=== PATIENT | male | born 1935 | race Caucasian/White ===

== ENCOUNTER → 2016-05-03 | Outpatient (CLI) | payer OTHER ==
[~2016-05-03] MED LIST: AMLO2.5T PO; CALC-20 PO; CHOL100010 PO; CHOL100041 PO; FLM4 PO; METO-551 PO; MULT-506 PO; NYSTCRE11 TD; RAMI5CAP OR; SIMV20TA2 PO; TAMS0.4C38 PO; WARF1TAB PO; WARF3TAB PO
== END | disposition home or self-care (01) ==
LOC: C.LAB 09:59
PROVIDERS: ATTEND Urology
DX: C61 Malignant neoplasm of prostate (principal)

== ENCOUNTER → 2016-10-06 | Outpatient (CLI) | payer OTHER ==
[2016-10-06 12:24] LABS: BASO % 0.4 %; BASO ABS # 0.02 K/uL (0-0.2); COMPLETE YES; EOS % 1.4 %; HEMATOCRIT 40.8 % (42-52); IG% 0.2 %; LYMPH % 24.6 %; LYMPH ABS # 1.23 K/uL (1.2-3.4); MEAN CORPUSCULAR HEMOGLOBIN 32.3 pg (25-34); MEAN CORPUSCULAR HGB CONC 34.3 g/dl (32-36); MEAN PLATELET VOLUME 10.9 fL (7.4-10.4); MONO % 11.4 %; PLATELET COUNT 125 K/uL (130-400); RED BLOOD COUNT 4.34 M/uL (4.7-6.1)
[2016-10-06 13:21] LABS: BLOOD UREA NITROGEN 24 mg/dl (7-18); BUN/CREATININE RATIO 23.8 (10-20); CALCIUM 8.8 mg/dl (8.5-10.1); CARBON DIOXIDE 28 mmol/L (21-32); CHLORIDE 106 mmol/L (98-107); GLUCOSE 92 mg/dl (70-99); POTASSIUM 4.2 mmol/L (3.5-5.1); SODIUM 142 mmol/L (136-145)
--- NOTE | 2016-10-13 08:23 | CODING QUERY MEDICAL NECESSITY ---
CQSUPPORTING DIAGNOSIS NEEDED A supporting diagnosis is required for the test/procedure performed on this patient in order for us to be reimbursed by the patient's insurance. Please provide a supporting diagnosis for the following test/procedure listed below next to the test name along with your signature. *If there is no additional diagnosis for this patient that would support the following test/procedure please document that below next to the test/procedure. Test(s)/Procedure(s) that require a supporting diagnosis: DOS 10/06/16 VITAMIN D TEST Provider Signature: Date: Thank you Crystal Brown Health Information Management Once completed, please kindly fax back to [phone] For questions please call [phone]
== END ==
LOC: C.LABPBG 08:52
PROVIDERS: ATTEND Internal Medicine Geriatric Medicine
DX: I10 Essential (primary) hypertension (principal); Z79.01 Long term (current) use of anticoagulants; D64.9 Anemia, unspecified; D61.818 Other pancytopenia; M85.80 Other specified disorders of bone density and structure, unspecified site

== ENCOUNTER → 2016-11-24 | Outpatient (CLI) | payer OTHER | END | disposition home or self-care (01) | LOC: C.LABPBG 07:59 | PROVIDERS: ATTEND Urology | DX: C61 Malignant neoplasm of prostate (principal) ==

== ENCOUNTER 2017-01-02 09:14 | Emergency (ER) | payer OTHER ==
[~2017-01-02] VITALS: Ht 175.3 cm; Wt 77.5 kg
[~2017-01-02 09:14] MED LIST changes: -AMLO2.5T PO; -CHOL100041 PO; -TAMS0.4C38 PO
[2017-01-02 09:16] VITALS: TEMP 36.4; Ht 175.3 cm; Wt 77.5 kg
[2017-01-02] MEDS ORDERED: CHOL100041 PO (09:41)
[2017-01-02] MEDS ORDERED: LISINOPRIL 5 MG TAB PO ONE (09:45)
--- NOTE | 2017-01-02 09:54 | EMERGENCY ROOM VISIT NOTE ---
"History Report prepared by Flo: Heather Reyes Under the Supervision of: Dr. Clinton Mendez M.D. First contact with patient: 09:23 Chief Complaint: HYPERTENSION Stated Complaint: HIGH BP, HEART History of Present Illness The patient is an 81 year old male who presents to the Emergency Room with complaints of persistent hypertension that began this morning. The patient states that he has a history of atrial fibrillation, noting that he is on Coumadin. The patient states that he last had his INR checked last week, noting that it is normal. He additionally notes a history of Prostate cancer, reporting being on Flomax for the past 10 years. The patient states that this past week he had an eye appointment, noting that he was found to have cataracts. He states that he was instructed to stop taking Flomax. The patient states that since then he has noticed his heart rate increase, and over the last few days he has noticed an irregular heart rhythm. He states that this morning he woke up and found his blood pressure to be 150/102 mmHg, but states that he typically runs around 110/65 mmHg. The patient states that this morning he took his Metoprolol. He denies any back pain, chest pain, abdominal pain, or shortness of breath. The patient states that his urine output has decreased since stopping the Flomax. He additionally reports a history of a pacemaker. The patient states that he was previously on Ramipril, but states that he was taken off the medication because he blood pressure dropped too low. Source of History: patient Onset: this morning Position: other (global) Symptom Intensity: 150/102 Quality: other (hypertension) Timing: other (persistent) Associated Symptoms: No chest pain, No SOB, No abdominal pain, No back pain Note: Associated Symptoms: tachycardia, irregular heart rhythm Review of Systems See HPI for pertinent positives & negatives. A total of 10 systems reviewed and were otherwise negative. 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 Family History FHx: cancer FHx: heart disease Hypertension Kidney disease Kidney stones Social History Smoking Status: Never Smoker Alcohol Use: none Marital Status: Housing Status: lives with significant other Occupation Status: retired Current/Historical Medications Scheduled Calcium Carbonate-Vitamin D (Calcium 600 + D), 1 TAB PO QAM Cholecalciferol (D 1000), 1,000 UNITS PO DAILY Metoprolol Tartrate (Lopressor), 50 MG PO BID Multivitamin (Multivitamin), 1 TAB PO QAM Simvastatin (Zocor), 20 MG PO QPM Warfarin Sodium (Coumadin), 3 MG PO DAILY Warfarin Sodium (Coumadin), 0.5 TAB PO DAILY Scheduled PRN Nystatin/Triamcinolone (Mycogen || ), 1 APPL TD BID PRN Allergies Coded Allergies: NO KNOWN DRUG ALLERGIES (Verified Allergy, Unknown, ., 01/02/17) Physical Exam Vital Signs Date Time Temp Pulse Resp B/P (MAP) Pulse Ox O2 Delivery O2 Flow Rate FiO2 01/02/17 10:54 66 16 152/88 94 01/02/17 09:16 36.4 74 20 153/99 99 Room Air Physical Exam GENERAL: Patient is well appearing and in no acute distress. HEENT: No acute trauma, normocephalic atraumatic, mucous membranes moist, no nasal congestion, no scleral icterus. NECK: No stridor, no adenopathy, no meningismus, trachea is midline. LUNGS: No dyspnea. Clear to auscultation and equal bilaterally. No wheeze, no rhonchi. HEART: Regular rate and rhythm. No murmurs, rubs, gallops appreciated. ABDOMEN: Soft, nontender, bowel sounds positive, no masses appreciated, no peritonitis. BACK: No midline tenderness, no CVA tenderness EXTREMITIES: Normal motion all extremities, no cyanosis, no edema. NEUROLOGIC: Alert and oriented, no acute motor or sensory deficits, no focal weakness, cranial nerves grossly intact. SKIN: No rash, no jaundice, no diaphoresis. Medical Decision & Procedures Laboratory Results 01/02/17 09:50 Red Blood Count 4.42, Mean Corpuscular Volume 94.6, Mean Corpuscular Hemoglobin 31.9, Mean Corpuscular Hemoglobin Concent 33.7, Mean Platelet Volume 10.3, Neutrophils (%) (Auto) 70.2, Lymphocytes (%) (Auto) 17.5, Monocytes (%) (Auto) 10.2, Eosinophils (%) (Auto) 1.3, Basophils (%) (Auto) 0.4, Neutrophils # (Auto ) 3.87, Lymphocytes # (Auto) 0.96, Monocytes # (Auto) 0.56, Eosinophils # (Auto ) 0.07, Basophils # (Auto) 0.02 01/02/17 09:50 Test 01/02/17 09:50 White Blood Count 5.50 K/uL (4.8-10.8) Red Blood Count 4.42 M/uL (4.7-6.1) Hemoglobin 14.1 g/dL (14.0-18.0) Hematocrit 41.8 % (42-52) Mean Corpuscular Volume 94.6 fL (80-100) Mean Corpuscular Hemoglobin 31.9 pg (25-34) Mean Corpuscular Hemoglobin Concent 33.7 g/dl (32-36) Platelet Count 128 K/uL (130-400) Mean Platelet Volume 10.3 fL (7.4-10.4) Neutrophils (%) (Auto) 70.2 % Lymphocytes (%) (Auto) 17.5 % Monocytes (%) (Auto) 10.2 % Eosinophils (%) (Auto) 1.3 % Basophils (%) (Auto) 0.4 % Neutrophils # (Auto) 3.87 K/uL (1.4-6.5) Lymphocytes # (Auto) 0.96 K/uL (1.2-3.4) Monocytes # (Auto) 0.56 K/uL (0.11-0.59) Eosinophils # (Auto) 0.07 K/uL (0-0.5) Basophils # (Auto) 0.02 K/uL (0-0.2) RDW Standard Deviation 43.5 fL (36.4-46.3) RDW Coefficient of Variation 12.6 % (11.5-14.5) Immature Granulocyte % (Auto) 0.4 % Immature Granulocyte # (Auto) 0.02 K/uL (0.00-0.02) Prothrombin Time 24.5 SECONDS (9.0-12.0) Prothromb Time International Ratio 2.2 (0.9-1.1) Activated Partial Thromboplast Time 42.6 SECONDS (21.0-31.0) Partial Thromboplastin Ratio 1.6 Anion Gap 4.0 mmol/L (3-11) Est Creatinine Clear Calc Drug Dose 66.6 ml/min Estimated GFR () 93.8 Estimated GFR (Non- 80.9 BUN/Creatinine Ratio 17.8 (10-20) Calcium Level 9.2 mg/dl (8.5-10.1) Magnesium Level 2.3 mg/dl (1.8-2.4) Troponin I < 0.015 ng/ml (0-0.045) Laboratory results as reviewed by me. Medications Administered Medications (Trade) Dose Ordered Sig/Hailey Route Start Time Stop Time Status Last Admin Dose Admin Lisinopril (Zestril Tab) 5 mg NOW ONCE PO 01/02/17 09:45 01/02/17 09:46 DC 01/02/17 10:10 5 MG ECG Indication: other (hypertension) Rate (beats per minute): 66 Rhythm: other (atrial paced) Findings: 1st degree AV block, PAC, other (bifasicular block) ED Course 923: The patient was evaluated in room B12B. A complete history and physical exam was performed. 0945: Ordered Zestril Tab 5 mg PO. 1048: I reevaluated the patient and he is doing well. I discussed the exam findings with him and I discussed the treatment plan. He verbalized complete understanding and agreement. He is ready to go home. Medical Decision Differential: Benign Hypertension, Hypertensive Urgency/Emergency, Cardiovascular Pathology, Endocrine, Metabolic/Electrolyte, Renal Disease, End- organ Damage, amongst other pathologies entertained. 81 yr old male sent to ED after discussion with outpatient physician over phone for evaluation of HTN and palpitations this morning. Recently stopped both ramipril and Flomax which are likely causes of his increased HTN. Palpitations unclear though no current afib but does have periodic PAC along with his paced rhythm. Plts stable consistent with his chronic thrombocytopenia. INR therapeutic. He has no symptoms and feels fine. No evidence of ACS. Will have him restart ramipril daily. Reviewed symptoms requiring RTED. Will follow up with PCP as well as will be seen by PAT for cornea surgery. Medication Reconcilliation Current Medication List: was personally reviewed by me Blood Pressure Screening Patient's blood pressure: Elevated blood pressure Blood pressure disposition: Referred to PCP Impression Primary Impression: HYPERTENSION NOS Additional Impressions: Intermittent palpitations Thrombocytopenia Scribe Attestation The scribe's documentation has been prepared under my direction and personally reviewed by me in its entirety. I confirm that the note above accurately reflects all work, treatment, procedures, and medical decision making performed by me. Departure Information Dispostion Home / Self-Care Referrals No Doctor, Assigned (PCP) Forms HOME CARE DOCUMENTATION FORM, IMPORTANT VISIT INFORMATION, WORK / SCHOOL INSTRUCTIONS Patient Instructions My [facility] Additional Instructions Your blood pressure was elevated during this visit. This is quite common in many people who are being evaluated in the Emergency Department for many reasons. However, it is important that you have your Primary Care Provider recheck your blood pressure and discuss whether treatment will be needed. [facility] elevated blood pressure can lead to strokes, heart attacks, kidney failure amongst other medical issues. If you develop severe headaches, chest pain, weakness in arms or legs, or other concerning symptoms call 911. You may restart your Ramipril daily tomorrow. Problem Qualifiers"
[2017-01-02 10:06] LABS: BASO % 0.4 %; BASO ABS # 0.02 K/uL (0-0.2); COMPLETE YES; EOS % 1.3 %; HEMATOCRIT 41.8 % (42-52); IG% 0.4 %; LYMPH % 17.5 %; LYMPH ABS # 0.96 K/uL (1.2-3.4); MEAN CELL VOLUME 94.6 fL (80-100); MEAN CORPUSCULAR HEMOGLOBIN 31.9 pg (25-34); MEAN CORPUSCULAR HGB CONC 33.7 g/dl (32-36); MEAN PLATELET VOLUME 10.3 fL (7.4-10.4); MONO % 10.2 %; NEUT % 70.2 %; PLATELET COUNT 128 K/uL (130-400); RED BLOOD COUNT 4.42 M/uL (4.7-6.1)
[2017-01-02 10:26] LABS: BLOOD UREA NITROGEN 15 mg/dl (7-18); BUN/CREATININE RATIO 17.8 (10-20); CALCIUM 9.2 mg/dl (8.5-10.1); CARBON DIOXIDE 30 mmol/L (21-32); CHLORIDE 108 mmol/L (98-107); CREATININE 0.87 mg/dl (0.60-1.40); GLUCOSE 102 mg/dl (70-99); MAGNESIUM 2.3 mg/dl (1.8-2.4); POTASSIUM 4.1 mmol/L (3.5-5.1); SODIUM 142 mmol/L (136-145)
[2017-01-02 10:34] LABS: INR 2.2 (0.9-1.1); PARTIAL THROMBOPLASTIN RATIO 1.6; PROTHROMBIN TIME (PATIENT) 24.5 SECONDS (9.0-12.0)
[2017-01-02 10:54] VITALS: BP 152/88; PULSE 66; O2SAT 94
[2017-01-10] MEDS ORDERED: AMLO2.5T PO (14:29)
[2017-01-10] MEDS ORDERED: TAMS0.4C38 PO (14:29)
== END 2017-01-02 10:56 | disposition home or self-care (01) ==
LOC: C.EDB 09:16
DX: I10 Essential (primary) hypertension (principal); R00.2 Palpitations; D69.6 Thrombocytopenia, unspecified; I48.91 Unspecified atrial fibrillation; Z85.46 Personal history of malignant neoplasm of prostate; Z98.61 Coronary angioplasty status; Z98.890 Other specified postprocedural states; Z82.49 Family history of ischemic heart disease and other diseases of the circulatory system; Z84.1 Family history of disorders of kidney and ureter; Z79.01 Long term (current) use of anticoagulants; Z79.899 Other long term (current) drug therapy

== ENCOUNTER → 2017-01-30 | Outpatient (CLI) | payer OTHER ==
[~2017-01-30] MED LIST changes: +AMLO2.5T PO; -CHOL100010 PO; -FLM4 PO; -RAMI5CAP OR; +TAMS0.4C38 PO
[2017-01-30 12:18] LABS: BLOOD UREA NITROGEN 14 mg/dl (7-18); BUN/CREATININE RATIO 15.3 (10-20); CALCIUM 8.9 mg/dl (8.5-10.1); CARBON DIOXIDE 30 mmol/L (21-32); CHLORIDE 108 mmol/L (98-107); CREATININE 0.94 mg/dl (0.60-1.40); GLUCOSE 89 mg/dl (70-99); SODIUM 143 mmol/L (136-145)
== END | disposition home or self-care (01) ==
LOC: C.LABPBG 10:40
PROVIDERS: ATTEND Physician Assistant
DX: Z01.818 Encounter for other preprocedural examination (principal)

== ENCOUNTER → 2017-02-07 | Day surgery (SDC) | payer OTHER ==
[2017-01-10 14:31] VITALS: Ht 167.6 cm; Wt 72.7 kg
[~2017-02-07] VITALS: Ht 167.6 cm; Wt 72.7 kg
[~2017-02-07] MED LIST changes: +500ML BSS 0.3ML EPI 1:1000PF IRRIG ONE; +ACETAMINOPHEN 325 MG TAB PO PRN; +AMVISC PLUS 0.8ML SYRINGE INT OCU ONE; +ATROPINE SULFATE 0.1 MG/ML 5ML SYR IV PRN; +BSS FLUSH ONE; +EpHEDrine SULFATE INJ 50 MG/ML AMP IV PRN; +EpINEphrine INJ 1MG/ML AMP 1 MG/ML AMP ONE; +LACTATED RINGER'S 1000ML 500 ML IV SCH; +LIDOCAINE 3.5% OPH GEL PER APPLICATION CHARGE ONE; +LIDOCAINE HCL 1% MPF 2 ML VIAL ONE; +MIDAZOLAM HCL 1 MG/ML 2ML VIAL ONE; +MIX: 4ML BSS 1ML EPI 1:1000 PF INSTIL ONE; +OCUCOAT 1 ML SOLN IO ONE; +ONDANSETRON INJ 2 MG/ML 2 ML VIAL IV PRN; +PHENYLEPHRINE HCL 10% OP SOLN PER DROP CHARGE OPR SCH; +POVIDONE-IODINE OP SOLN 30 ML BTL ONE; +PROPARACAINE 0.5% OP SOLN PER DROP CHARGE OPR SCH; +TOBRAMYCIN/DEXAMETHASONE OPH OINT PER APPLN CHARGE ONE
[2017-02-07] MEDS: PHENYLEPHRINE HCL 2.5% OP SOLN PER DROP CHARGE OPR SCH ×2 (11:08→11:17)
[2017-02-07] MEDS: TROPICAMIDE 1% OP SOLN PER DROP CHARGE OPR SCH ×2 (11:09→11:18)
[2017-02-07] MEDS: CYCLOPENTOLATE HCL 1% OP SOLN PER DROP CHARGE OPR SCH ×2 (11:10→11:19)
[2017-02-07] MEDS: KETOROLAC 0.5% OP SOLN PER DROP CHARGE OPR SCH ×2 (11:11→11:20)
[2017-02-07] MEDS: GATIFLOXACIN OP SOLN PER DROP CHARGE OPR SCH ×2 (11:12→11:22)
--- NOTE | 2017-02-07 11:38 | History & Physical Bridge - SC ---
H&P Re-Evaluation Bridge Note: I have examined the patient, reviewed the History & Physical and in the interval since the performance of the History & Physical I have noted the following changes of clinical significance: Diagnosis: Right Cataract Procedure: Right Cataract Removal with Lens Implant No changes noted
--- NOTE | 2017-02-07 12:10 | Discharge Instructions-SurgCtr ---
Discharge Instructions Date of Service Feb 07, 2017. Visit Reason for Visit: Cataract Right Eye Discharge Discharge Diagnosis / Problem: cataract Discharge Goals Goal(s): Improve function Medications Stopped Medications Name(s): regan, last dose over 1 month ago Activity Recommendations Activity Limitations: per Instructions/Follow-up section Anesthesia . Post Anesthesia Instructions: If you have had General Anesthesia or IV Sedation: * Do not drive today. * Resume driving when surgeon permits. * Do not make important decisions or sign legal documents today. * Call surgeon for: 1. Temperature elevations greater than 101 degrees F. 2. Uncontrollable pain. 3. Excessive bleeding. 4. Persistent nausea and vomiting. 5. Medication intolerance (nausea, vomiting or rash). * For nausea and vomiting use only clear liquids such as: tea, soda, bouillon until nausea subsides, then gradually increase diet as tolerated. * If you have any concerns or questions, call your surgeon's office. If physician is unavailable and it is an emergency, call 911 or go to the nearest emergency room. . Diet Recommendations Home Diet: resume previous diet Procedures Procedures Performed: Right Cataract Phacoemulsification With Intraocular Lens Implant Pending Studies Studies pending at discharge: no Medical Emergencies . Who to Call and When: Medical Emergencies: If at any time you feel your situation is an emergency, please call 911 immediately. . Non-Emergent Contact Non-Emergency issues call your: Bridge Operator . . "Provider Documentation" section prepared by Broderick Terry. .
--- NOTE | 2017-02-07 12:11 | [facility] Operative Report ---
Operative Report Date of Service Feb 07, 2017. Operative Report 1. PREOPERATIVE DIAGNOSIS: Cataract of the right eye. 2. POSTOPERATIVE DIAGNOSIS: Same. 3. PROCEDURE: Phacoemulsification with intraocular lens implantation of the right eye. SURGEON: Dr. Broderick Terry. ANESTHESIA: Topical Lidocaine gel, 1% Non- Preserved intracameral Lidocaine, and monitored intravenous sedation. INDICATIONS FOR THE PROCEDURE: The patient is a 82 - year-old male with a history of cataract of the right eye causing significant visual impairment. The details of the proposed procedure were explained to the patient who asked appropriate questions and following discussion of all risks, benefits and alternatives agreed to have the procedure done. The patient had a know history of taking of flomax. 4. OPERATION AND FINDINGS: DESCRIPTION OF PROCEDURE: After informed consent was obtained, the patient was brought to the Operating Room at the [facility]. The patient was placed in a supine position and then the right eye was prepped and draped in the usual sterile fashion for intraocular surgery. A drop of topical Lidocaine gel was placed in the operative eye. A wire lid speculum was then placed in the fornices. A corneal paracentesis was then created temporally. The Non-Preserved Lidocaine was then instilled into the anterior chamber. Epinephrine with a 1:4 dilution was instilled into the anterior chamber. The anterior chamber was then pressurized with viscoelastic. A 2.0 mm clear corneal incision was then created temporally. A cystotome was inserted into the anterior chamber and used to create a tear in the anterior lens capsule. This capsular tear was then used to create a small flap and the flap was dragged in a counterclockwise direction in order to create a continuous curvilinear capsulorrhexis. Hydrodissection was accomplished with balanced salt solution. Phacoemulsification of the lens nucleus was then performed in a standard [id number] technique. The phaco time was 30 seconds with an average power of 9 %. The remaining cortical material was removed using irrigation aspiration. The capsular bag was then filled with viscoelastic. A [employer]ch [employer] Lomb MI60L +20.0 diopters lens was then loaded into the injector and injected into the capsular bag. The remaining viscoelastic was removed with the irrigation aspiration handpiece. The wound was hydrated and then checked and found to be watertight. The intraocular pressure was checked and found to be adequate. The wire lid speculum was removed and the patient's face was cleaned and dried. TobraDex ointment was placed in the inferior fornix. The patient was discharged to the Recovery Room having tolerated the procedure well. There were no complications. The patient will be seen tomorrow in the office for follow-up. I attest to the content of the Intraoperative Record and any orders documented therein. Any exceptions are noted below.
[2017-02-07 12:12] VITALS: TEMP 36.5
--- NOTE | 2017-02-07 12:30 | Anesthesia Progress Nt - [facility] ---
Anesthesia Post Op Note Date & Time Feb 07, 2017 at 12:30 Vital Signs Pain Intensity: 0 Vital Signs Past 12 Hours Date Time Temp Pulse Resp B/P (MAP) Pulse Ox O2 Delivery O2 Flow Rate FiO2 02/07/17 12:12 36.5 61 16 122/78 (93) 95 Room Air 02/07/17 10:59 36.4 67 16 135/72 (93) 95 Notes Mental Status: alert / awake / arousable, participated in evaluation Pt Amnestic to Procedure: Yes Nausea / Vomiting: adequately controlled Pain: adequately controlled Airway Patency, RR, SpO2: stable & adequate BP & HR: stable & adequate Hydration State: stable & adequate Anesthetic Complications: no major complications apparent
[2017-02-07 12:35] VITALS: BP 141/78; PULSE 59; O2SAT 98
== END | disposition home or self-care (01) ==
LOC: X.SURG 10:34
PROVIDERS: ATTEND Ophthalmology
DX: H26.9 Unspecified cataract (principal); I25.10 Atherosclerotic heart disease of native coronary artery without angina pectoris; I48.0 Paroxysmal atrial fibrillation; I10 Essential (primary) hypertension; I25.2 Old myocardial infarction; Z85.46 Personal history of malignant neoplasm of prostate; Z68.26 Body mass index [BMI] 26.0-26.9, adult; Z79.01 Long term (current) use of anticoagulants

== ENCOUNTER → 2017-02-21 | Day surgery (SDC) | payer OTHER ==
[2017-02-09 10:18] VITALS: Ht 167.6 cm; Wt 72.7 kg
[~2017-02-21] VITALS: Ht 167.6 cm; Wt 72.7 kg
[~2017-02-21] MED LIST changes: -ONDANSETRON INJ 2 MG/ML 2 ML VIAL IV PRN; +PHENYLEPHRINE HCL 10% OP SOLN PER DROP CHARGE OPL SCH; -PHENYLEPHRINE HCL 10% OP SOLN PER DROP CHARGE OPR SCH; +PROPARACAINE 0.5% OP SOLN PER DROP CHARGE OPL SCH; -PROPARACAINE 0.5% OP SOLN PER DROP CHARGE OPR SCH
[2017-02-21] MEDS: PHENYLEPHRINE HCL 2.5% OP SOLN PER DROP CHARGE OPL SCH ×2 (10:12→10:18)
[2017-02-21] MEDS: TROPICAMIDE 1% OP SOLN PER DROP CHARGE OPL SCH ×2 (10:13→10:19)
[2017-02-21] MEDS: CYCLOPENTOLATE HCL 1% OP SOLN PER DROP CHARGE OPL SCH ×2 (10:14→10:20)
[2017-02-21] MEDS: KETOROLAC 0.5% OP SOLN PER DROP CHARGE OPL SCH ×2 (10:15→10:20)
[2017-02-21] MEDS: GATIFLOXACIN OP SOLN PER DROP CHARGE OPL SCH ×2 (10:16→10:27)
--- NOTE | 2017-02-21 10:44 | History & Physical Bridge - SC ---
H&P Re-Evaluation Bridge Note: I have examined the patient, reviewed the History & Physical and in the interval since the performance of the History & Physical I have noted the following changes of clinical significance: Diagnosis: Left Cataract Procedure: Left Cataract Removal with Lens Implant No changes noted
--- NOTE | 2017-02-21 11:17 | Discharge Instructions-SurgCtr ---
Discharge Instructions Date of Service Feb 21, 2017. Visit Reason for Visit: Cataract Left Eye Discharge Discharge Diagnosis / Problem: cataract Discharge Goals Goal(s): Improve function Medications Stopped Medications Name(s): Flomax-stopped 6 weeks ago. Activity Recommendations Activity Limitations: per Instructions/Follow-up section Anesthesia . Post Anesthesia Instructions: If you have had General Anesthesia or IV Sedation: * Do not drive today. * Resume driving when surgeon permits. * Do not make important decisions or sign legal documents today. * Call surgeon for: 1. Temperature elevations greater than 101 degrees F. 2. Uncontrollable pain. 3. Excessive bleeding. 4. Persistent nausea and vomiting. 5. Medication intolerance (nausea, vomiting or rash). * For nausea and vomiting use only clear liquids such as: tea, soda, bouillon until nausea subsides, then gradually increase diet as tolerated. * If you have any concerns or questions, call your surgeon's office. If physician is unavailable and it is an emergency, call 911 or go to the nearest emergency room. . Diet Recommendations Home Diet: resume previous diet Procedures Procedures Performed: Left Cataract Phacoemulsification With Intraocular Lens Implant Pending Studies Studies pending at discharge: no Medical Emergencies . Who to Call and When: Medical Emergencies: If at any time you feel your situation is an emergency, please call 911 immediately. . Non-Emergent Contact Non-Emergency issues call your: Garage Supervisor . . "Provider Documentation" section prepared by Broderick Terry. .
--- NOTE | 2017-02-21 11:18 | [facility] Operative Report ---
Operative Report Date of Service Feb 21, 2017. Operative Report 1. PREOPERATIVE DIAGNOSIS: Cataract of the left eye. 2. POSTOPERATIVE DIAGNOSIS: Same. 3. PROCEDURE: Phacoemulsification with intraocular lens implantation of the left eye. SURGEON: Dr. Broderick Terry. ANESTHESIA: Topical Lidocaine gel, 1% Non- Preserved intracameral Lidocaine, and monitored intravenous sedation. INDICATIONS FOR THE PROCEDURE: The patient is a 82 - year-old male with a history of cataract of the left eye causing significant visual impairment. The details of the proposed procedure were explained to the patient who asked appropriate questions and following discussion of all risks, benefits and alternatives agreed to have the procedure done. 4. OPERATION AND FINDINGS: DESCRIPTION OF PROCEDURE: After informed consent was obtained, the patient was brought to the Operating Room at the [facility]. The patient was placed in a supine position and then the left eye was prepped and draped in the usual sterile fashion for intraocular surgery. A drop of topical Lidocaine gel was placed in the operative eye. A wire lid speculum was then placed in the fornices. A corneal paracentesis was then created temporally. The Non-Preserved Lidocaine was then instilled into the anterior chamber. The anterior chamber was then pressurized with viscoelastic. A 2.0 mm clear corneal incision was then created temporally. A cystotome was inserted into the anterior chamber and used to create a tear in the anterior lens capsule. This capsular tear was then used to create a small flap and the flap was dragged in a counterclockwise direction in order to create a continuous curvilinear capsulorrhexis. Hydrodissection was accomplished with balanced salt solution. Phacoemulsification of the lens nucleus was then performed in a standard hqogvo-wlo-pasyvjt technique. The phaco time was 22 seconds with an average power of 9 %. The remaining cortical material was removed using irrigation aspiration. The capsular bag was then filled with viscoelastic. A [employer]ch [employer] Lomb MI60L +20.0 diopters lens was then loaded into the injector and injected into the capsular bag. The remaining viscoelastic was removed with the irrigation aspiration handpiece. The wound was hydrated and then checked and found to be watertight. The intraocular pressure was checked and found to be adequate. The wire lid speculum was removed and the patient's face was cleaned and dried. TobraDex ointment was placed in the inferior fornix. The patient was discharged to the Recovery Room having tolerated the procedure well. There were no complications. The patient will be seen tomorrow in the office for follow-up. I attest to the content of the Intraoperative Record and any orders documented therein. Any exceptions are noted below.
[2017-02-21 11:19] VITALS: TEMP 36.1
--- NOTE | 2017-02-21 11:34 | Anesthesia Progress Nt - [facility] ---
Anesthesia Post Op Note Date & Time Feb 21, 2017 at 11:34 Vital Signs Pain Intensity: 0 Vital Signs Past 12 Hours Date Time Temp Pulse Resp B/P (MAP) Pulse Ox O2 Delivery O2 Flow Rate FiO2 02/21/17 11:19 36.1 58 16 125/80 (95) 95 Room Air 02/21/17 10:05 36.2 84 20 147/99 (115) 96 Room Air Notes Mental Status: alert / awake / arousable, participated in evaluation Pt Amnestic to Procedure: Yes Nausea / Vomiting: adequately controlled Pain: adequately controlled Airway Patency, RR, SpO2: stable & adequate BP & HR: stable & adequate Hydration State: stable & adequate Anesthetic Complications: no major complications apparent
[2017-02-21 11:42] VITALS: BP 134/81; PULSE 63; O2SAT 95
== END | disposition home or self-care (01) ==
LOC: X.SURG 09:38
PROVIDERS: ATTEND Ophthalmology
DX: H25.9 Unspecified age-related cataract (principal); I48.0 Paroxysmal atrial fibrillation; I10 Essential (primary) hypertension; E78.5 Hyperlipidemia, unspecified; Z95.0 Presence of cardiac pacemaker; Z79.01 Long term (current) use of anticoagulants; Z79.899 Other long term (current) drug therapy

== ENCOUNTER → 2017-03-31 | Outpatient (CLI) | payer OTHER ==
[~2017-03-31] MED LIST changes: -500ML BSS 0.3ML EPI 1:1000PF IRRIG ONE; -ACETAMINOPHEN 325 MG TAB PO PRN; -AMVISC PLUS 0.8ML SYRINGE INT OCU ONE; -ATROPINE SULFATE 0.1 MG/ML 5ML SYR IV PRN; -BSS FLUSH ONE; -EpHEDrine SULFATE INJ 50 MG/ML AMP IV PRN; -EpINEphrine INJ 1MG/ML AMP 1 MG/ML AMP ONE; -LACTATED RINGER'S 1000ML 500 ML IV SCH; -LIDOCAINE 3.5% OPH GEL PER APPLICATION CHARGE ONE; -LIDOCAINE HCL 1% MPF 2 ML VIAL ONE; -MIDAZOLAM HCL 1 MG/ML 2ML VIAL ONE; -MIX: 4ML BSS 1ML EPI 1:1000 PF INSTIL ONE; -OCUCOAT 1 ML SOLN IO ONE; -PHENYLEPHRINE HCL 10% OP SOLN PER DROP CHARGE OPL SCH; -POVIDONE-IODINE OP SOLN 30 ML BTL ONE; -PROPARACAINE 0.5% OP SOLN PER DROP CHARGE OPL SCH; -TOBRAMYCIN/DEXAMETHASONE OPH OINT PER APPLN CHARGE ONE
== END | disposition home or self-care (01) ==
LOC: C.LABSPEC 13:12
PROVIDERS: ATTEND Physician Assistant
DX: J02.9 Acute pharyngitis, unspecified (principal)

== ENCOUNTER → 2017-04-05 | Outpatient (CLI) | payer OTHER ==
[2017-04-05 12:01] LABS: BASO % 0.2 %; BASO ABS # 0.01 K/uL (0-0.2); COMPLETE YES; EOS % 1.5 %; HEMATOCRIT 42.5 % (42-52); IG% 0.2 %; LYMPH % 22.5 %; LYMPH ABS # 1.08 K/uL (1.2-3.4); MEAN CELL VOLUME 95.7 fL (80-100); MEAN CORPUSCULAR HGB CONC 33.4 g/dl (32-36); MEAN PLATELET VOLUME 10.5 fL (7.4-10.4); NEUT % 66.6 %; PLATELET COUNT 119 K/uL (130-400); RED BLOOD COUNT 4.44 M/uL (4.7-6.1)
[2017-04-05 12:24] LABS: ALT/SGPT 57 U/L (12-78); AST/SGOT 40 U/L (15-37); BLOOD UREA NITROGEN 16 mg/dl (7-18); BUN/CREATININE RATIO 17.8 (10-20); CALCIUM 8.8 mg/dl (8.5-10.1); CARBON DIOXIDE 32 mmol/L (21-32); CHLORIDE 106 mmol/L (98-107); CREATININE 0.92 mg/dl (0.60-1.40); GLUCOSE 113 mg/dl (70-99); POTASSIUM 3.9 mmol/L (3.5-5.1); SODIUM 140 mmol/L (136-145)
[2017-04-05 12:42] LABS: ALKALINE PHOSPHATASE 82 U/L (45-117); CHOLESTEROL 121 mg/dl (0-200); CHOLESTEROL/HDL RATIO 2.1; HDL CHOLESTEROL 57 mg/dl; LDL CHOLESTEROL CALCULATED 40 mg/dl; TRIGLYCERIDES 119 mg/dl (0-150); VERY LOW DENSITY LIPOPROT CALC 24 mg/dl
== END | disposition home or self-care (01) ==
LOC: C.LABPBG 09:56
PROVIDERS: ATTEND Internal Medicine Geriatric Medicine
DX: I25.10 Atherosclerotic heart disease of native coronary artery without angina pectoris (principal); I48.0 Paroxysmal atrial fibrillation; I10 Essential (primary) hypertension; E78.5 Hyperlipidemia, unspecified; Z79.01 Long term (current) use of anticoagulants; Z95.0 Presence of cardiac pacemaker; I49.5 Sick sinus syndrome; C61 Malignant neoplasm of prostate

== ENCOUNTER → 2017-05-25 | Outpatient (CLI) | payer OTHER | END | disposition home or self-care (01) | LOC: C.LABPBG 10:46 | PROVIDERS: ATTEND Urology | DX: C61 Malignant neoplasm of prostate (principal) ==

== ENCOUNTER → 2017-12-07 | Outpatient (CLI) | payer OTHER | END | disposition home or self-care (01) | LOC: C.LABPBG 08:15 | PROVIDERS: ATTEND Urology | DX: C61 Malignant neoplasm of prostate (principal) ==

== ENCOUNTER 2022-04-09 17:21 | Inpatient (IN) ==
--- NOTE | 2022-04-09 17:51 | Emergency Department Note ---
Impression & Plan Hypoxia, Influenza A, AMS (altered mental status), Acute confusion, Generalized weakness ED Provider Note INFORMANT: Patient and daughter ED PROVIDER(S): Lamont Bustillo MD CHIEF COMPLAINT: Confusion PLAN: Disposition: Admitted Condition: Good Outpatient prescription management: None Referral: None MEDICAL DECISION MAKING: Patient presented because of confusion. He was diagnosed with influenza. The patient seemed to do okay per the daughter after his first dose of Vicodin. He received a second dose about 4 hours after the first. He seemed to then develop his symptoms. The patient was evaluated. He still had some mild confusion and he was generally weak. No focal neurologic findings were noted. ECG was nonischemic. The patient's chest x-ray did not show any acute changes. The patient CBC and chemistry panel were unremarkable. Patient's troponin was within normal limits although was higher than it was earlier today. On reassessment the patient still had some mild confusion present. I suspect this is a combination of his age, illness, and medication. In light of the symptoms and situation further management in the hospital was felt to be appropriate. I gave my usual and customary discussion regarding this issue. Consultation was made with Dr. Patrick Do of the [facility] service. Patient was evaluated in the ER for further management. Triage Nursing notes reviewed and agree them. Vital Signs: reviewed and remarkable for no significant abnormalities Differential diagnosis: Complication of influenza, medication side effect, infection, hypoglycemia, electrolyte abnormalities, overdose, toxicologic, cardiac sources, intracerebral event, neurologic, trauma, as well as other pathologies. Diagnostics interpreted by me: ECG: Twelve-lead ECG revealed sinus rhythm at 87 bpm with first-degree AV block. Incomplete right bundle branch block and left anterior fascicular block present. No ischemia. Cardiac Monitoring: Cardiac monitoring ordered by me: The patient was placed on continuous cardiac monitoring and observed. It revealed a normal sinus rhythm at 84 beats per minute without ectopy or evidence of dysrhythmia. Imaging studies: Chest x-ray. Findings: A chest x-ray was performed and revealed no pneumothorax, effusion, infiltrate, pulmonary edema, free air under the diaphragm, or wide mediastinum. Impression: No acute disease. HPI: The patient is a 87year old male who presents to the Emergency Room with complaints of confusion. This started this afternoon and is somewhat improved. Patient's daughter is present and helps with the history. Patient was in the emergency room this morning and diagnosed with influenza A. He was doing well. He did have a moderate cough. He was prescribed Hycodan. He did take a dose around 9 AM and did fine with it. The patient had a second dose around 1230. The patient's noted that he became agitated and confused. He had an O2 saturation in the 70s even though he was awake. Daughter notes that she did administer a dose of Narcan to him. He seemed to improve somewhat. His O2 saturations were hovering around 92%. He still had confusion. No trauma reported. Patient denies any pain. Pt denies LOC, headache, fevers, chills, diaphoresis, visual changes, neck pain, chest pain, significant LIN or SOB, nausea, vomiting, abdominal pain, back pain, urinary symptoms, numbness, lymphadenopathy, rash, or other complaints. ROS: See above HPI for pertinent positives & negatives. A total of 10 systems reviewed and were otherwise negative. PAST MEDICAL HISTORY:See Below , CAD, GA PAST SURGICAL HISTORY:See Below, FAMILY HISTORY:See Below SOCIAL HISTORY:See Below, HOME MEDICATIONS:See Below ALLERGIES:See Below VITALS:See Below PHYSICAL EXAMINATION: GENERAL: Awake, tired-appearing, in no distress HENT: Normocephalic, atraumatic. Oropharynx unremarkable. EYES: Normal conjunctiva. Sclera non-icteric. PERRLA. EOMI. NECK: Inspection normal. Non-tender. Supple. No nuchal rigidity. FROM. No masses. RESPIRATORY: Clear to auscultation. No wheezes. No rales. Normal respiratory effort. CARDIAC: Normal rate. Normal rhythm. No murmurs. No rubs. Extremities warm and well perfused. Pulses equal. No JVD. GI: Soft, non-distended. No tenderness to palpation. No rebound or guarding. No masses. RECTAL: Deferred. MUSCULOSKELETAL: Atraumatic. Chest examination reveals no tenderness. The back is symmetrical on inspection without obvious abnormality. There is no CVA tenderness to palpation. No joint edema. LOWER EXTREMITIES: Calves are equal size bilaterally and non-tender. No edema. No discoloration. NEURO: Oriented to person only, otherwise relatively normal sensorium. No focal sensory or motor deficits noted. Speech normal. No drift. SKIN: No rash or jaundice noted. Lamont Bustillo MD Past Med/Surg History Medical History (Updated 04/09/22 @ 17:51 by Lamont Bustillo MD) Atrial fibrillation (10/03/12) BPH (benign prostatic hyperplasia) Carcinoma of prostate (10/03/12) Radiation Tx, followed by Urology Cardiac pacemaker Coronary artery disease Dyslipidemia History of cardioversion History of hemorrhoids Hypertension Pancytopenia Prior Hematology Evaluation Past myocardial infarction Sick sinus syndrome Surgical History Atrial fibrillation status post cardioversion electrical cardioversion to sinus rhythm History of angioplasty History of colonoscopy History of permanent cardiac pacemaker placement History of placement of stent in LAD coronary artery (10/03/12) History of PTCA 1992-myocardial infarction History of radiation therapy History of surgery on extremity repair of broken finger S/P left knee arthroscopy Family History Father Prostate cancer Heart disease Heart disease Brother Heart disease Prostate cancer Heart disease Myocardial infarction Other No family history of bleeding disorder No pertinent family history Denies family history of Ovarian cancer Diabetes Breast cancer Colorectal cancer Hypertension Stroke Social History Smoking Status: Never smoker Second Hand Exposure: No; Hx Alcohol Use: No Hx Substance Use: No Preferred Language: Kazakh Communication Ability: Effective Visual Impairment: Limited Hearing Ability: Use of Hearing Aid Tapper Bit Required: No marital status: Current Living Situation: Spouse current occupational status: retired How many Children do You have: 1 Feels Safe at Home: Yes Childhood Exposure to Second-Hand Smoke: No caffeine: No Dental Care, Regularly: Yes Physical Activity Frequency: Daily Seatbelt Use: always Sunscreen Use: No (WEARS HAT) Do you think of yourself as: straight/heterosexual Allergies Allergies Allergy/AdvReac Type Severity Reaction Status Date / Time omeprazole AdvReac Intermediate GI UPSET Verified 04/09/22 18:39 Home Meds Home Medications Medication Instructions Recorded Confirmed calcium carbonate 600 mg-vitamin 1 tab PO DAILY 07/01/18 04/09/22 D3 5 mcg (200 unit) capsule (Calcium 600 + D(3)) multivitamin 1 tab PO DAILY 07/01/18 04/09/22 cholecalciferol (vitamin D3) 50 2,000 unit PO HS 09/19/18 04/09/22 mcg (2,000 unit) capsule atorvastatin 20 mg tablet 20 mg PO HS 03/29/21 04/09/22 nystatin-triamcinolone 100,000 1 applic topical BID PRN Skin 03/29/21 04/09/22 unit/gram-0.1 % topical ointment Irritation zinc acetate 25 mg (zinc) capsule 25 mg PO HS 05/06/21 04/09/22 (Galzin) cyclobenzaprine 5 mg tablet 2.5 mg PO HS PRN muscle spasm 04/09/22 04/09/22 hydrocodone-homatropine 5 mg-1.5 5 ml PO Q4H PRN Cough 04/09/22 04/09/22 mg/5 mL oral syrup naloxone 4 mg/actuation nasal spray 4 mg intranasal DIRECTED PRN 04/09/22 04/09/22 OVERSEDATION tamsulosin 0.4 mg capsule 0.4 mg PO HS 04/09/22 04/09/22 warfarin 1 mg tablet 1 mg PO [id number] 04/09/22 04/09/22 Previous Rx's Medication Instructions Recorded warfarin 3 mg tablet See Rx Instructions .Route 09/13/21 .COMPLEX #90 tabs metoprolol tartrate 25 mg tablet 25 mg PO BID #180 tabs 10/26/21 Results & Data (ED) Vital Signs Vital Signs - 24 hr 04/09/22 17:24 04/09/22 17:45 04/09/22 17:47 Temperature 37.2 C Temperature Source Temporal Artery Scan Pulse Rate 81 Pulse Rate [Right Brachial] 89 Pulse Rate from SpO2 Sensor Pulse Rhythm [Right Brachial] Regular Pulse Strength [Right Brachial] Normal Respiratory Rate 20 19 Respiratory Effort / Characteristics Non-Labored Non-Labored Spontaneous Respiratory Depth Normal Normal Respiratory Pattern Regular Blood Pressure 147/110 H Blood Pressure [Left Arm] 184/87 H Blood Pressure Mean 122 Blood Pressure Mean [Left Arm] 119 Pulse Oximetry 92 96 95 Oxygen Delivery Method Room Air Room Air Room Air Sepsis Recent Fever Within 48 Hours No Sepsis New/Unexplained Change in Mental Status N/A Sepsis Action Taken by Nursing No Action Required 04/09/22 17:38 04/09/22 17:46 04/09/22 17:46 Temperature Temperature Source Pulse Rate 87 90 Pulse Rate [Right Brachial] Pulse Rate from SpO2 Sensor 87 90 Pulse Rhythm [Right Brachial] Pulse Strength [Right Brachial] Respiratory Rate 27 H 24 Respiratory Effort / Characteristics Respiratory Depth Respiratory Pattern Blood Pressure 184/87 H Blood Pressure [Left Arm] Blood Pressure Mean 119 Blood Pressure Mean [Left Arm] Pulse Oximetry 94 96 Oxygen Delivery Method Sepsis Recent Fever Within 48 Hours Sepsis New/Unexplained Change in Mental Status Sepsis Action Taken by Nursing 04/09/22 18:00 04/09/22 18:30 04/09/22 19:00 Temperature Temperature Source Pulse Rate 87 101 H 87 Pulse Rate [Right Brachial] Pulse Rate from SpO2 Sensor 87 100 H 87 Pulse Rhythm [Right Brachial] Pulse Strength [Right Brachial] Respiratory Rate 24 22 23 Respiratory Effort / Characteristics Respiratory Depth Respiratory Pattern Blood Pressure Blood Pressure [Left Arm] Blood Pressure Mean Blood Pressure Mean [Left Arm] Pulse Oximetry 93 93 92 Oxygen Delivery Method Sepsis Recent Fever Within 48 Hours Sepsis New/Unexplained Change in Mental Status Sepsis Action Taken by Nursing 04/09/22 19:23 Temperature Temperature Source Pulse Rate Pulse Rate [Right Brachial] Pulse Rate from SpO2 Sensor Pulse Rhythm [Right Brachial] Pulse Strength [Right Brachial] Respiratory Rate Respiratory Effort / Characteristics Respiratory Depth Respiratory Pattern Blood Pressure Blood Pressure [Left Arm] 156/89 H Blood Pressure Mean Blood Pressure Mean [Left Arm] 111 Pulse Oximetry Oxygen Delivery Method Sepsis Recent Fever Within 48 Hours Sepsis New/Unexplained Change in Mental Status Sepsis Action Taken by Nursing Laboratory Data Result diagrams: 04/09/22 17:35 04/09/22 17:35 Lab Results 04/09/22 04/09/22 Range/Units 17:35 17:35 WBC 8.60 (4.8-10.8) K/ul RBC 4.42 L (4.63-6.08) M/uL Hgb 14.1 (14.0-18.0) g/dl Hct 41.0 (40.1-51.0) % MCV 92.8 (80.0-100.0) fL MCH 31.9 (25.0-34.0) pg MCHC 34.4 (32.0-36.0) g/dL RDW Std Deviation 42.2 (36.4-46.3) fL RDW Coeff of Juan Luis 12.3 (11.5-14.5) % Plt Count 107 L (130-400) K/uL MPV 10.6 (9.4-12.4) fL Immature Gran % (Auto) 0.6 % Neut % (Auto) 84.1 % Lymph % (Auto) 5.7 % Colbert % (Auto) 9.5 % Eos % (Auto) 0.0 % Baso % (Auto) 0.1 % Neut # (Auto) 7.23 H (1.4-6.5) K/uL Lymph # (Auto) 0.49 L (1.2-3.4) K/uL Colbert # (Auto) 0.82 (0.24-0.82) K/uL Eos # (Auto) 0.00 (0-0.50) K/uL Baso # (Auto) 0.01 (0-0.2) K/uL Immature Gran # (Auto) 0.05 H (0.00-0.02) K/uL Sodium 133 L (136-145) mmol/L Potassium 4.0 (3.5-5.1) mmol/L Chloride 97 L (98-107) mmol/L Carbon Dioxide 28 (21-32) mmol/L Anion Gap 8 (3-11) BUN 14 (6-23) mg/dl Creatinine 0.82 (0.6-1.4) mg/dl Est Cr Clr Drug Dosing 63.5 ml/min Est GFR ( Amer) 92.2 ml/min Est GFR (Non-Af Amer) 79.5 ml/min BUN/Creatinine Ratio 17.1 (10-20) Glucose 125 H (70-99(Fasting)) mg/dl Calcium 8.7 (8.5-10.1) mg/dl Total Bilirubin 0.8 (0.2-1.0) mg/dl AST 23 (13-39) U/L ALT 15 (7-52) U/L Alkaline Phosphatase 70 (34-104) U/L Troponin I High Sens 17.4 D (0-20) pg/ml Total Protein 6.7 (6.0-8.3) gm/dl Albumin 4.1 (3.4-5.0) gm/dl Globulin 2.6 (2.5-4.0) gm/dl Albumin/Globulin Ratio 1.6 (0.9-2) Imaging Data Radiologist's Impression: Chest X-Ray 04/09/22 17:47 XR chest 1V portable CLINICAL HISTORY: Dyspnea, influenza COMPARISON STUDY: Chest radiograph April 09, 2022 at 6:48 AM. FINDINGS: Dual lead left subclavian pacer is in place. There is no pneumothorax. There is a possible trace left pleural effusion. Cardiomegaly is unchanged. There is no evidence for pulmonary edema. There is no consolidation to suggest pneumonia. IMPRESSION: 1. Cardiomegaly. No evidence for pulmonary edema. 2. Possible trace left pleural effusion. ACT 112: Negative or not required by law. Electronically signed by: Shaq Lakhani M.D. 04/09/2022 6:16 PM Discharge Plan Visit Data Chief Complaint: Abnormal Labs/Diagnostic Testing Stated Complaint: LOW OXYGEN ED Provider: Lamont Bustillo Discharge Problem: Hypoxia, Influenza A, AMS (altered mental status), Acute confusion, Generalized weakness Forms Stand Alone Forms: [facility] [place] cube19 Prescriptions Prescriptions: No Action warfarin 3 mg tablet See Rx Instructions .ROUTE .COMPLEX Qty: 90 3RF Protocol: Dose Management Condition: Monday Dose/Route: 3.5 mg Instruction: 3.5 x 1 mg tablets Condition: Monday Dose/Route: 3 mg Instruction: 1 x 3 mg tablet Condition: Monday Dose/Route: 3.5 mg Instruction: 3.5 x 1 mg tablets Condition: Monday Dose/Route: 3.5 mg Instruction: 3.5 x 1 mg tablets Condition: Dose/Route: 3.5 mg Instruction: 3.5 x 1 mg tablets Condition: Monday Dose/Route: 3 mg Instruction: 1 x 3 mg tablet Condition: Monday Dose/Route: 3.5 mg Instruction: 3.5 x 1 mg tablets Protocol Text: Adjustment Start Date: Monday03/16/22 INR Value: 2.0 INR Date: 03/16/22 Recheck Date: 04/13/22 Dose Instruction: TAKE 1 TABLET BY MOUTH DIRECTED, SEE PROTOCOL Rx Instructions: TAKES 3.5 MG ON MON & MON--TAKES WITH 1/2 OF 1 MG TAB., SEE PROTOCOL metoprolol tartrate 25 mg tablet 25 mg PO BID Qty: 180 3RF atorvastatin 20 mg tablet 20 mg PO HS nystatin-triamcinolone 100,000-0.1 unit/gram-% ointment 1 applic TOP BID PRN (Reason: Skin Irritation) Rx Instructions: Dispense 3 tubes cholecalciferol (vitamin D3) 2,000 unit capsule 2,000 unit PO HS Galzin 25 mg (zinc) capsule 25 mg PO HS multivitamin Tablet 1 tab PO DAILY Calcium 600 + D(3) 600 mg calcium- 200 unit Capsule 1 tab PO DAILY hydrocodone-homatropine 5-1.5 mg/5 mL Syrup 5 ml PO Q4H PRN (Reason: Cough) Rx Instructions: PER PT'S DAUGHTER "HAD DOSES AT 0920 & 1330" naloxone 4 mg/actuation Bells,Non-Aerosol 4 mg INTRANASAL DIRECTED PRN (Reason: OVERSEDATION) tamsulosin 0.4 mg capsule 0.4 mg PO HS warfarin 1 mg tablet 1 mg PO [id number] Protocol: Dose Management Condition: Monday Dose/Route: 3.5 mg Instruction: 3.5 x 1 mg tablets Condition: Monday Dose/Route: 3 mg Instruction: 1 x 3 mg tablet Condition: Monday Dose/Route: 3.5 mg Instruction: 3.5 x 1 mg tablets Condition: Monday Dose/Route: 3.5 mg Instruction: 3.5 x 1 mg tablets Condition: Dose/Route: 3.5 mg Instruction: 3.5 x 1 mg tablets Condition: Monday Dose/Route: 3 mg Instruction: 1 x 3 mg tablet Condition: Monday Dose/Route: 3.5 mg Instruction: 3.5 x 1 mg tablets Protocol Text: Adjustment Start Date: Monday03/16/22 INR Value: 2.0 INR Date: 03/16/22 Recheck Date: 04/13/22 Rx Instructions: TAKES ON SUN, , MON, , & SAT EVENINGS. cyclobenzaprine 5 mg tablet 2.5 mg PO HS PRN (Reason: muscle spasm) Referrals Referrals: Jarek Salas DO [Primary Care Provider] -
[2022-04-09 18:06] LABS: Hemoglobin 14.1 g/dl (14.0-18.0); Mean Corpuscular Hemoglobin 31.9 pg (25.0-34.0); Mean Corpuscular Hgb Conc 34.4 g/dL (32.0-36.0); Mean Corpuscular Volume 92.8 fL (80.0-100.0); Mean Platelet Volume 10.6 fL (9.4-12.4); Platelet Count 107 K/uL (130-400); RDW Coefficient of Variation 12.3 % (11.5-14.5); RDW Standard Deviation 42.2 fL (36.4-46.3); Red Blood Count 4.42 M/uL (4.63-6.08)
[2022-04-09 18:14] LABS: Basophils # (auto) 0.01 K/uL (0-0.2); Basophils % (auto) 0.1 %; Immature Granulocytes # (auto) 0.05 K/uL (0.00-0.02); Immature Granulocytes % (auto) 0.6 %; Lymphocytes # (auto) 0.49 K/uL (1.2-3.4); Lymphocytes % (auto) 5.7 %; Monocytes # (auto) 0.82 K/uL (0.24-0.82); Monocytes % (auto) 9.5 %; Neutrophils # (auto) 7.23 K/uL (1.4-6.5); Neutrophils % (auto) 84.1 %
--- NOTE | 2022-04-09 18:17 | XRay Report ---
XR chest 1V portable CLINICAL HISTORY: Dyspnea, influenza COMPARISON STUDY: Chest radiograph April 09, 2022 at 6:48 AM. FINDINGS: Dual lead left subclavian pacer is in place. There is no pneumothorax. There is a possible trace left pleural effusion. Cardiomegaly is unchanged. There is no evidence for pulmonary edema. The re is no consolidation to suggest pneumonia. IMPRESSION: 1. Cardiomegaly. No evidence for pulmonary edema. 2. Possible trace left pleural effusion. ACT 112: Negative or not required by law. Electronically signed by: Shaq Lakhani M.D. 04/09/2022 6:16 PM
[2022-04-09 18:22] LABS: Albumin Globulin Ratio 1.6 (0.9-2); Albumin Level 4.1 gm/dl (3.4-5.0); BUN Creatinine Ratio 17.1 (10-20); Bilirubin,Total 0.8 mg/dl (0.2-1.0); Calcium 8.7 mg/dl (8.5-10.1); Creatinine Clr Calc Pharmacy 63.5 ml/min; Est GFR (African American) 92.2 ml/min; Est GFR (Non-African American) 79.5 ml/min; Globulin 2.6 gm/dl (2.5-4.0); Total Protein 6.7 gm/dl (6.0-8.3); Troponin I High Sensitivity 17.4 pg/ml (0-20)
--- NOTE | 2022-04-09 19:53 | History & Physical Report ---
Date of Service April 09, 2022 Assessment & Plan (1) Influenza A: Plan: Influenza A with hypoxia/secondary bacterial URI- The patient initially developed symptoms about 4 days ago, and presented to the emergency department today due to a change in symptoms, in which his cough changed from white to green mucus, and he developed a temperature. He did have a put pulse ox as low was 70s, but was 92% on 2 L nasal cannula The patient is beyond time for which Tamiflu would be of value, however, he will be placed on secondary bacterial infection treatment due to change in symptoms Ceftriaxone 1 g IV daily Azithromycin 500 mg IV daily Guaifenesin extended release 12 mg p.o. twice daily Pulmicort Respules 0.5 mg inhaled twice daily Nasal cannula oxygen, titrate titrate to keep pulse ox 94-95% NSS + KCl 20 milliequivalents at 60 mils per hour x1 L (2) Hypoxia: (3) Acute confusion: Plan: Patient was experiencing some altered mentation secondary to influenza and secondary bacterial infection, recently been aggravated somewhat by Hycodan syrup, which will be discontinued (4) Generalized weakness: (5) Coronary artery disease: Plan: CAD/pacemaker status/sick sinus syndrome/hypertension/atrial fibrillation/long- term anticoagulant use- Continue metoprolol tartrate, warfarin INR therapeutic at 2.1 (6) Pacemaker: (7) Sick sinus syndrome: (8) Hypertension: (9) Anticoagulant long-term use: (10) Atrial fibrillation: (11) Cardiac pacemaker: (12) Dyslipidemia: Plan: Continue atorvastatin (13) Carcinoma of prostate: Plan: Continue tamsulosin History of Present Illness Chief Complaint: The patient presents to the emergency department with worsening confusion after having been diagnosed with influenza A early in the morning upon a visit to the emergency department Primary Care Provider: Jarek Salas DO The patient is an 87-year-old male with a past medical history including pacemaker status for sick sinus syndrome, BPH, prostate cancer, normocytic anemia, atrial fibrillation, CAD, dyslipidemia, hyperglycemia. He was seen in the emergency department earlier in the day and was diagnosed with influenza A. As part of his treatment, he was given Hycodan syrup, having tolerated the first dose, and then about 4 hours later after receiving the second dose, he developed worsening symptoms of confusion and weakness. Unclear at this time whether there is a causal association, but the patient has been feeling progressively more weak even prior to being seen in the emergency department this morning. Allergies Allergy/AdvReac Type Severity Reaction Status Date / Time omeprazole AdvReac Intermediate GI UPSET Verified 04/09/22 18:39 Home Medications Medication Instructions Recorded Confirmed Type calcium carbonate 600 mg-vitamin 1 tab PO DAILY 07/01/18 04/09/22 History D3 5 mcg (200 unit) capsule (Calcium 600 + D(3)) multivitamin 1 tab PO DAILY 07/01/18 04/09/22 History cholecalciferol (vitamin D3) 50 2,000 unit PO HS 09/19/18 04/09/22 History mcg (2,000 unit) capsule atorvastatin 20 mg tablet 20 mg PO HS 03/29/21 04/09/22 History nystatin-triamcinolone 100,000 1 applic topical BID PRN Skin 03/29/21 04/09/22 History unit/gram-0.1 % topical ointment Irritation zinc acetate 25 mg (zinc) capsule 25 mg PO HS 05/06/21 04/09/22 History (Galzin) warfarin 3 mg tablet See Rx Instructions .Route 09/13/21 04/09/22 Rx .COMPLEX #90 tabs metoprolol tartrate 25 mg tablet 25 mg PO BID #180 tabs 10/26/21 04/09/22 Rx cyclobenzaprine 5 mg tablet 2.5 mg PO HS PRN muscle spasm 04/09/22 04/09/22 History hydrocodone-homatropine 5 mg-1.5 5 ml PO Q4H PRN Cough 04/09/22 04/09/22 History mg/5 mL oral syrup (Hycodan (with homatropine)) naloxone 4 mg/actuation nasal spray 4 mg intranasal DIRECTED PRN 04/09/22 04/09/22 History OVERSEDATION tamsulosin 0.4 mg capsule 0.4 mg PO HS 04/09/22 04/09/22 History warfarin 1 mg tablet 1 mg PO 4XWK 04/09/22 04/09/22 History Past Med/Surg History Medical History (Updated 04/09/22 @ 17:51 by Lamont Bustillo MD) Atrial fibrillation (10/03/12) BPH (benign prostatic hyperplasia) Carcinoma of prostate (10/03/12) Radiation Tx, followed by Urology Cardiac pacemaker Coronary artery disease Dyslipidemia History of cardioversion History of hemorrhoids Hypertension Pancytopenia Prior Hematology Evaluation Past myocardial infarction Sick sinus syndrome Surgical History Atrial fibrillation status post cardioversion electrical cardioversion to sinus rhythm History of angioplasty History of colonoscopy History of permanent cardiac pacemaker placement History of placement of stent in LAD coronary artery (10/03/12) History of PTCA 1992-myocardial infarction History of radiation therapy History of surgery on extremity repair of broken finger S/P left knee arthroscopy Family History Father Prostate cancer Heart disease Heart disease Brother Heart disease Prostate cancer Heart disease Myocardial infarction Other No family history of bleeding disorder No pertinent family history Denies family history of Ovarian cancer Diabetes Breast cancer Colorectal cancer Hypertension Stroke Social History Smoking Status: Never smoker Second Hand Exposure: No; Do You Dip or Chew Tobacco: No; Hx Alcohol Use: No Hx Substance Use: No Preferred Language: Serbian Communication Ability: Effective Visual Impairment: Limited Hearing Ability: Use of Hearing Aid Piped Pocket Machine Operator Required: No Beliefs That Will Affect Care: None marital status: Current Living Situation: Spouse Current Living Situation Comment: Lives with Regine current occupational status: retired How many Children do You have: 1 Other Information That Helps Us Care for You: No Feels Safe at Home: Yes Safety Concerns: Feels Safe At This Time Childhood Exposure to Second-Hand Smoke: No caffeine: No Dental Care, Regularly: Yes Physical Activity Frequency: Daily Seatbelt Use: always Sunscreen Use: No (WEARS HAT) Do you think of yourself as: straight/heterosexual Assistive Devices: Contacts, Glasses and Hearing Aid - Bilateral Review of Systems Review of Systems: The patient denies chest pain, palpitations, lower extremity swelling, sore throat, fevers, chills, sweats, vomiting, diarrhea , constipation, abdominal pain, pelvic pain, blood in urine or stool, dysuria, urinary frequency or urgency, lightheadedness, dizziness, headache, memory loss, loss of consciousness, rash, abnormal bruising or bleeding, focal weakness, numbness or tingling in arms or legs, back or neck pain, or night sweats. The review of systems is otherwise negative other than for that already noted above, and at least 10 systems have been reviewed. Physical Exam Physical Exam: The patient is awake, alert and oriented 3, well developed and well nourished, normocephalic and atraumatic, lying in bed and in no acute distress. HEENT--PERRL, EOMI, mucous membranes and oropharynx dry. Neck--supple. No JVD. No bruits. Thyroid normal, trachea midline, no adenopathy. Heart--normal S1 and S2. No murmurs, rubs or gallops. Lungs--clear bilaterally, no respiratory distress, no accessory muscle use. Abdomen--normal bowel sounds and soft. Nontender. Nondistended, no hernias or masses, no organomegaly. Extremities--no cyanosis or clubbing. No edema. There are good distal pulses b/l. Dermatologic--normal skin turgor, normal color, no abnormal lymph nodes, no rash. Neurologic--cranial nerves II through XII grossly intact. Rheumatologic--normal range of motion. Psychiatric--normal affect. Results & Data Results & Data ([facility]) Vital Signs (Past 12 Hours) Vital Signs Temp Pulse Pulse Resp BP BP Pulse Ox 04/09/22 19:23 156/89 H 04/09/22 19:00 87 23 92 04/09/22 18:30 101 H 22 93 04/09/22 18:00 87 24 93 04/09/22 17:46 90 24 96 04/09/22 17:46 184/87 H 04/09/22 17:38 87 27 H 94 04/09/22 17:47 95 04/09/22 17:45 89 19 184/87 H 96 04/09/22 17:24 37.2 C 81 20 147/110 H 92 O2 Del Method 04/09/22 19:23 04/09/22 19:00 04/09/22 18:30 04/09/22 18:00 04/09/22 17:46 04/09/22 17:46 04/09/22 17:38 04/09/22 17:47 Room Air 04/09/22 17:45 Room Air 04/09/22 17:24 Room Air Laboratory Results Laboratory Results WBC 8.60 K/ul (4.8-10.8) 04/09/22 17:35 RBC 4.42 M/uL (4.63-6.08) L 04/09/22 17:35 Hgb 14.1 g/dl (14.0-18.0) 04/09/22 17:35 Hct 41.0 % (40.1-51.0) 04/09/22 17:35 MCV 92.8 fL (80.0-100.0) 04/09/22 17:35 MCH 31.9 pg (25.0-34.0) 04/09/22 17:35 MCHC 34.4 g/dL (32.0-36.0) 04/09/22 17:35 RDW Std Deviation 42.2 fL (36.4-46.3) 04/09/22 17:35 RDW Coeff of Juan Luis 12.3 % (11.5-14.5) 04/09/22 17:35 Plt Count 107 K/uL (130-400) L 04/09/22 17:35 MPV 10.6 fL (9.4-12.4) 04/09/22 17:35 Immature Gran % (Auto) 0.6 % 04/09/22 17:35 Neut % (Auto) 84.1 % 04/09/22 17:35 Lymph % (Auto) 5.7 % 04/09/22 17:35 [place] % (Auto) 9.5 % 04/09/22 17:35 Eos % (Auto) 0.0 % 04/09/22 17:35 Baso % (Auto) 0.1 % 04/09/22 17:35 Neut # (Auto) 7.23 K/uL (1.4-6.5) H 04/09/22 17:35 Lymph # (Auto) 0.49 K/uL (1.2-3.4) L 04/09/22 17:35 [place] # (Auto) 0.82 K/uL (0.24-0.82) 04/09/22 17:35 Eos # (Auto) 0.00 K/uL (0-0.50) 04/09/22 17:35 Baso # (Auto) 0.01 K/uL (0-0.2) 04/09/22 17:35 Immature Gran # (Auto) 0.05 K/uL (0.00-0.02) H 04/09/22 17:35 Sodium 133 mmol/L (136-145) L 04/09/22 17:35 Potassium 4.0 mmol/L (3.5-5.1) 04/09/22 17:35 Chloride 97 mmol/L (98-107) L 04/09/22 17:35 Carbon Dioxide 28 mmol/L (21-32) 04/09/22 17:35 Anion Gap 8 (3-11) 04/09/22 17:35 BUN 14 mg/dl (6-23) 04/09/22 17:35 Creatinine 0.82 mg/dl (0.6-1.4) 04/09/22 17:35 Est Cr Clr Drug Dosing 63.5 ml/min 04/09/22 17:35 Est GFR ( Amer) 92.2 ml/min 04/09/22 17:35 Est GFR (Non-Af Amer) 79.5 ml/min 04/09/22 17:35 BUN/Creatinine Ratio 17.1 (10-20) 04/09/22 17:35 Glucose 125 mg/dl (70-99(Fasting)) H 04/09/22 17:35 Calcium 8.7 mg/dl (8.5-10.1) 04/09/22 17:35 Total Bilirubin 0.8 mg/dl (0.2-1.0) 04/09/22 17:35 AST 23 U/L (13-39) 04/09/22 17:35 ALT 15 U/L (7-52) 04/09/22 17:35 Alkaline Phosphatase 70 U/L (34-104) 04/09/22 17:35 Troponin I High Sens 17.4 pg/ml (0-20) D 04/09/22 17:35 Total Protein 6.7 gm/dl (6.0-8.3) 04/09/22 17:35 Albumin 4.1 gm/dl (3.4-5.0) 04/09/22 17:35 Globulin 2.6 gm/dl (2.5-4.0) 04/09/22 17:35 Albumin/Globulin Ratio 1.6 (0.9-2) 04/09/22 17:35 Urine Color Yellow 04/09/22: Urine Appearance Clear (Clear) 04/09/22 22: Urine pH 5.5 (4.5-7.5) 04/09/22 22: Ur Specific [place] 1.022 (1.000-1.030) 04/09/22 22:30 Urine Protein Negative (Negative) 04/09/22 22: Urine Glucose (UA) Negative (Negative) 04/09/22: Urine Ketones 2+ (Negative) H 04/09/22: Urine Blood 1+ (Negative) H 04/09/22 22:30 Urine Nitrite Negative (Negative) 04/09/22: Urine Bilirubin Negative (Negative) 04/09/22: Urine Urobilinogen Negative (Negative) 04/09/22: Ur Leukocyte Esterase Negative (Negative) 04/09/22: Urine WBC (Auto) 1-5 /hpf (0-5) 04/09/22: Urine RBC (Auto) 5-10 /hpf (0-4) H 04/09/22: U Hyaline Cast (Auto) 0 /lpf (0-5) 04/09/22: U Epithel Cells (Auto) 5-10 /lpf (0-5) H 04/09/22:30 Urine Bacteria (Auto) Negative (Negative) 04/09/22 22:30 Impressions Chest X-Ray 04/09/22 17:47 XR chest 1V portable CLINICAL HISTORY: Dyspnea, influenza COMPARISON STUDY: Chest radiograph April 09, 2022 at 6:48 AM. FINDINGS: Dual lead left subclavian pacer is in place. There is no pneumothorax. There is a possible trace left pleural effusion. Cardiomegaly is unchanged. There is no evidence for pulmonary edema. There is no consolidation to suggest pneumonia. IMPRESSION: 1. Cardiomegaly. No evidence for pulmonary edema. 2. Possible trace left pleural effusion. ACT 112: Negative or not required by law. Electronically signed by: Shaq Lakhani M.D. 04/09/2022 6:16 PM Code Status & VTE Plan Code Status Full code VTE Prophylaxis Plan VTE Prophylaxis will be ordered: Yes (1) Coronary artery disease Associated angina: without angina Coronary Disease-Associated Artery/Lesion type: [place] artery [place] vs. transplanted heart: [place] heart Qualified Code(s): I25.10 - Atherosclerotic heart disease of [place] coronary artery without angina pectoris (2) Atrial fibrillation Atrial fibrillation type: paroxysmal Qualified Code(s): I48.0 - Paroxysmal atrial fibrillation (3) Hypertension Hypertension type: primary hypertension Qualified Code(s): I10 - Essential (primary) hypertension
[2022-04-09] MEDS ORDERED: ONDANSETRON INJ 2 MG/ML 2 ML VIAL IV PRN (21:49)
[2022-04-09] MEDS ORDERED: ACETAMINOPHEN 325 MG TAB PO PRN (21:49)
[2022-04-09] MEDS ORDERED: NSS + 20MEQ KCL 20 MEQ/1,000 ML BAG IV SCH (22:00)
[2022-04-09] MEDS: ATORVASTATIN 20 MG TAB PO SCH (22:21)
[2022-04-09] MEDS: METOPROLOL TARTRATE 25 MG TAB PO SCH (22:22)
[2022-04-09] MEDS: ZINC SULFATE 220 MG CAPSULE PO SCH (22:22)
[2022-04-09] MEDS: CHOLECALCIFEROL 1,000 UNITS 25 MCG TAB PO SCH (22:22)
[2022-04-09] MEDS: TAMSULOSIN HCL 0.4 MG CAP PO SCH (22:22)
[2022-04-09] MEDS: guaiFENesin 600 MG TABCR PO SCH (22:22)
[2022-04-09] MEDS: cefTRIAXone SODIUM 1,000 MG in DEXTROSE 5% AD-VAN 50 ML IV SCH (22:23)
[2022-04-09 22:47] LABS: Appearance Urine Clear (Clear); Bacteria Urine Automated Negative (Negative); Bilirubin Urine Negative (Negative); Blood Urine 1+ (Negative); Cast Urine Automated 0 /lpf (0-5); Color Urine Yellow; Glucose Urine UA Negative (Negative); Ketones Urine 2+ (Negative); Leukocyte Esterase Urine Negative (Negative); Nitrite Urine Negative (Negative); Protein Urine Negative (Negative); Specific Gravity Urine 1.022 (1.000-1.030); Urobilinogen Urine Negative (Negative); pH Urine 5.5 (4.5-7.5)
[2022-04-09] MEDS: AZITHROMYCIN 500 MG in DEXTROSE 5% 250 ML IV SCH (22:58)
--- NOTE | 2022-04-10 02:02 | Billing Data ---
Date of Service April 10, 2022 Coding Level of Care Code 84552 Initial Inpt Care Lvl 3
[2022-04-10] MEDS: ALBUT/IPRATROP 3MG/0.5MG NEB 3 ML VIAL NEB SCH ×4 (07:32→19:54)
[2022-04-10] MEDS: BUDESONIDE 0.5 MG/2 ML VIAL (PULMICORT) NEB SCH ×2 (07:32→19:11)
[2022-04-10 07:46] LABS: INR 1.5 (0.9-1.1); Prothrombin Time 15.4 Seconds (9.0-12.0)
[2022-04-10 07:58] LABS: Albumin Globulin Ratio 1.6 (0.9-2); Albumin Level 3.5 gm/dl (3.4-5.0); BUN Creatinine Ratio 20.3 (10-20); Bilirubin,Total 0.8 mg/dl (0.2-1.0); Calcium 7.9 mg/dl (8.5-10.1); Creatinine Clr Calc Pharmacy 81.3 ml/min; Globulin 2.2 gm/dl (2.5-4.0); Magnesium 1.7 mg/dl (1.7-2.4); Potassium 3.8 mmol/L (3.5-5.1); Total Protein 5.7 gm/dl (6.0-8.3)
[2022-04-10 08:06] LABS: Basophils # (auto) 0.01 K/uL (0-0.2); Basophils % (auto) 0.1 %; Hematocrit (blood only) 35.6 % (40.1-51.0); Hemoglobin 12.4 g/dl (14.0-18.0); Immature Granulocytes # (auto) 0.04 K/uL (0.00-0.02); Immature Granulocytes % (auto) 0.5 %; Lymphocytes # (auto) 0.78 K/uL (1.2-3.4); Lymphocytes % (auto) 8.8 %; Mean Corpuscular Hemoglobin 31.6 pg (25.0-34.0); Mean Corpuscular Hgb Conc 34.8 g/dL (32.0-36.0); Mean Corpuscular Volume 90.8 fL (80.0-100.0); Mean Platelet Volume 10.7 fL (9.4-12.4); Monocytes # (auto) 1.07 K/uL (0.24-0.82); Monocytes % (auto) 12.1 %; Neutrophils # (auto) 6.97 K/uL (1.4-6.5); Neutrophils % (auto) 78.5 %; Platelet Count 91 K/uL (130-400); Platelet Estimate Decreased (Normal); RDW Coefficient of Variation 12.2 % (11.5-14.5); Red Blood Count 3.92 M/uL (4.63-6.08); White Blood Count 8.87 K/ul (4.8-10.8)
[2022-04-10] MEDS: guaiFENesin 600 MG TABCR PO SCH ×2 (08:26→21:29)
[2022-04-10] MEDS: CALCIUM 600MG + VIT D 400 IU TAB PO SCH (08:26)
[2022-04-10] MEDS: MULTIVITAMIN TAB PO SCH (08:26)
[2022-04-10] MEDS: METOPROLOL TARTRATE 25 MG TAB PO SCH ×2 (08:26→21:29)
[2022-04-10] MEDS ORDERED: WARFARIN SOD 1 MG TAB PO SCH (16:00)
[2022-04-10] MEDS ORDERED: WARFARIN SOD 3 MG TAB PO SCH ×2 (16:00→16:30)
[2022-04-10] MEDS ORDERED: WARFARIN SOD 0.5 MG TAB PO SCH (16:30)
[2022-04-10] MEDS: WARFARIN SOD 3 MG TAB PO SCH (17:20)
[2022-04-10] MEDS ORDERED: COUGH DROP (SUGAR FREE) LOZ 24 LOZ/1 BOX BUCCAL PRN (18:27)
[2022-04-10] MEDS: ZINC SULFATE 220 MG CAPSULE PO SCH (21:28)
[2022-04-10] MEDS: TAMSULOSIN HCL 0.4 MG CAP PO SCH (21:29)
[2022-04-10] MEDS: CHOLECALCIFEROL 1,000 UNITS 25 MCG TAB PO SCH (21:30)
[2022-04-10] MEDS: ATORVASTATIN 20 MG TAB PO SCH (21:30)
[2022-04-10] MEDS: cefTRIAXone SODIUM 1,000 MG in DEXTROSE 5% AD-VAN 50 ML IV SCH (21:37)
--- NOTE | 2022-04-10 22:12 | Hospitalist Progress Note ---
Date of Service April 10, 2022 Assessment & Plan (1) Influenza A: Plan: Influenza A with hypoxia/secondary bacterial URI- The patient initially developed symptoms about 4 days ago, and presented to the emergency department today due to a change in symptoms, in which his cough changed from white to green mucus, and he developed a temperature. Patient had some very light hemoptysis today with some blood-tinged sputum. No sue bleeding or clots. He did have a put pulse ox as low was 70s, but was 92% on 2 L nasal cannula The patient is beyond time for which Tamiflu would be of value, however, he will be placed on secondary bacterial infection treatment due to change in symptoms Ceftriaxone 1 g IV daily Azithromycin 500 mg IV daily Guaifenesin extended release 12 mg p.o. twice daily Pulmicort Respules 0.5 mg inhaled twice daily Nasal cannula oxygen, titrate titrate to keep pulse ox 94-95% (no tobacco abuse history or pulmonary disease in the past) NSS + KCl 20 milliequivalents at 60 mils per hour x1 L (2) Hypoxia: Plan: No prior use of supplemental oxygen at home Most likely secondary to acute influenza A Titrate supplemental oxygen to maintain SaO2 greater than 90% (3) Acute confusion: Plan: Patient was experiencing some altered mentation secondary to influenza and secondary bacterial infection, recently been aggravated somewhat by Hycodan syrup, which will be discontinued This is resolved at this time. Patient alert and oriented x4 (4) Generalized weakness: Plan: Secondary to acute influenza A We will request PT/OT evaluation and treatment Encourage increase in activity as tolerated (5) Coronary artery disease: Plan: CAD/pacemaker status/sick sinus syndrome/hypertension/atrial fibrillation/long- term anticoagulant use- Continue metoprolol tartrate, warfarin INR therapeutic at 2.1 Continue Coumadin (warfarin) -3 mg p.o. on Monday and Monday; 3.5 mg p.o. every other day In review of home medication list, reconciliation needs to be updated to include the above dosing of warfarin (6) Pacemaker: Plan: Telemetry personally reviewed and pacer spikes are identified Placed approximately [address] Mehta. Routinely checked on an outpatient basis per cardiology No indication for interrogation at this time (7) Sick sinus syndrome: Plan: Continue with cardiac pacemaker as above Continue with Toprol tartrate 25 mg p.o. twice daily (8) Hypertension: Plan: Hemodynamically stable Continue Lopressor 25 mg twice daily Vital signs per protocol (9) Anticoagulant long-term use: Plan: Secondary to atrial fibrillation INR is currently decreased to 1.5. This is not terribly concerning as patient is currently rate controlled in the 60s Continue with warfarin dosing per outpatient schedule and follow INR while inpatient Patient refusing broccoli on dinner tray as he is aware that this could drop INR (10) Atrial fibrillation: Plan: Permanent atrial fibrillation Pacemaker in place as well as rate controlling agent with Lopressor 25 mg p.o. twice daily Continue chronic anticoagulation with warfarin 3 mg p.o. on Monday and Monday and 3.5 mg p.o. all other days Continue to monitor on telemetry during his acute illness phase (11) Dyslipidemia: Plan: Continue atorvastatin (12) Carcinoma of prostate: Plan: Continue tamsulosin Plan Patient seems to be considerably improved since admission If he continues to improve, could possibly discharge home tomorrow Continue to monitor on telemetry secondary to atrial fibrillation and initial hypoxia Daughter Kelly Guaman updated by phone. She would like daily updates, if possible, at [phone] Admission and Anticipated Discharge Date Admission Date: April 09, 2022 Supervising Physician Co-Signing Physician Notes Attending Attestation - Chart reviewed, care plan d/w ALVERTO Beavers. I agree with the amaro components of his documentation. Hira Hill MD Subjective Attending: Dr. Hill Patient seen and examined in room 251 bed 1. He is alert and oriented and has no acute complaints other than fatigue and mild hoarseness in his voice. He has some minimal sinus congestion. He is coughing and has a productive sputum which has a tinge of red. No further fever, sweats, chills. No chest pain or tightness. Patient is chronically in atrial fibrillation with a pacemaker and is currently in the 60s. No other acute complaints at this time. Patient lives at home with his . His daughter Kelly Guaman is a registered nurse and is very active in his care Review of Systems Review of Systems: A total of 10 systems was reviewed and is negative other than as listed in the HPI Physical Exam Physical Exam: GENERAL : No acute distress EYES: No icterus, gaze conjugate NOSE: No evidence of epistaxis MOUTH: No lesions or candidiasis NECK: Supple LUNGS: Bibasilar coarse Rales. No rhonchi in the upper [place]. No appreciation of bronchospasm HEART: Irregular, irregular, rate controlled in the 60s ABDOMEN: Soft, NT, ND, BS Present EXTREMITIES: No LE edema, pedal pulses intact NEURO: A&OX3 Results & Data Results & Data ([facility]) Vital Signs (Past 12 Hours) Vital Signs Temp Pulse Pulse Resp BP Pulse Ox O2 Del Method 04/10/22 21:59 Room Air 04/10/22 19:44 37.3 C 103 H 18 117/67 90 Room Air 04/10/22 19:14 91 H 18 91 Room Air 04/10/22 16:18 37.3 C 82 18 149/75 H 93 Room Air 04/10/22 15:30 62 04/10/22 15:14 66 19 93 04/10/22 11:40 36.8 C 60 20 118/66 92 Room Air 04/10/22 11:22 64 16 92 Room Air 04/10/22 10:51 Room Air 04/10/22 10:49 82 Diagnostic Findings XR chest 1V portable CLINICAL HISTORY: Dyspnea, influenza COMPARISON STUDY: Chest radiograph April 09, 2022 at 6:48 AM. FINDINGS: Dual lead left subclavian pacer is in place. There is no pneumothorax. There is a possible trace left pleural effusion. Cardiomegaly is unchanged. There is no evidence for pulmonary edema. There is no consolidation to suggest pneumonia. IMPRESSION: 1. Cardiomegaly. No evidence for pulmonary edema. 2. Possible trace left pleural effusion. ACT 112: Negative or not required by law. Electronically signed by: Shaq Lakhani M.D. 04/09/2022 6:16 PM Critical Care Results & Data Vital Signs (Past 12 Hours) Vital Signs Temp Pulse Pulse Resp BP Pulse Ox O2 Del Method 04/10/22 21:59 Room Air 04/10/22 19:44 37.3 C 103 H 18 117/67 90 Room Air 04/10/22 19:14 91 H 18 91 Room Air 04/10/22 16:18 37.3 C 82 18 149/75 H 93 Room Air 04/10/22 15:30 62 04/10/22 15:14 66 19 93 04/10/22 11:40 36.8 C 60 20 118/66 92 Room Air 04/10/22 11:22 64 16 92 Room Air 04/10/22 10:51 Room Air 04/10/22 10:49 82 Lab & Micro Results (Past 24 Hours) No Data to Display No Data to Display No Data to Display I & O Totals 24 Hours 04/09/22 04/10/22 04/11/22 06:59 06:59 06:59 Intake Total 405 / 405 1650 / 1650 Output Total 100 / 100 Balance 305 / 305 1650 / 1650 Cumulative 04/09/22 17:21 thru 04/10/22 22:00 Intake Total 5 Output Total 100 Balance 1955 RT Ventilator Mngmt (Last Documented) Ventilator Ordered Settings Respiratory Rate 18 04/10/22 19:44 Ventilator - PT Measurements Respiratory Rate 18 PG Care Time/CCT Total # of Minutes Spent Total Time Spent with Patient: Total time spent is greater than 50% in coordination of care (as documented) at patient's floor/unit and/or counseling patient: Coding Level of Care Code 06628 Subseq Hosp Care Lvl 2 Diagnoses Influenza A J10.1 Hypoxia R09.02 Acute confusion R41.0 Generalized weakness R53.1 Coronary artery disease I25.10 Associated angina: without angina Coronary Disease-Associated Artery/Lesion type: [place] artery [place] vs. transplanted heart: [place] heart Pacemaker Z95.0 Sick sinus syndrome I49.5 Hypertension I10 Hypertension type: primary hypertension Anticoagulant long-term use Z79.01 Atrial fibrillation I48.0 Atrial fibrillation type: paroxysmal Dyslipidemia E78.5 Carcinoma of prostate C61 Time Spent (min) 25 (1) Coronary artery disease Associated angina: without angina Coronary Disease-Associated Artery/Lesion type: [place] artery [place] vs. transplanted heart: [place] heart Qualified Code(s): I25.10 - Atherosclerotic heart disease of [place] coronary artery without angina pectoris (2) Atrial fibrillation Atrial fibrillation type: paroxysmal Qualified Code(s): I48.0 - Paroxysmal atrial fibrillation (3) Hypertension Hypertension type: primary hypertension Qualified Code(s): I10 - Essential (primary) hypertension
[2022-04-10] MEDS: AZITHROMYCIN 500 MG in DEXTROSE 5% 250 ML IV SCH (22:19)
--- NOTE | 2022-04-11 06:05 | Electrocardiogram Report ---
Test Reason : Blood Pressure : / mmHG Vent. Rate : 087 BPM Atrial Rate : 087 BPM P-R Int : 210 ms QRS Dur : 150 ms QT Int : 396 ms P-R-T Axes : 090 -83 064 degrees QTc Int : 476 ms Sinus rhythm with 1st degree A-V block Right bundle branch block Left anterior fascicular block Bifascicular block Abnormal ECG When compared with ECG of 09-APR-2022 07:07, Criteria for Septal infarct are no longer Present Confirmed by Kar Brooke ([id number]) on 04/11/2022 6:04:49 AM Referred By: Jarek Salas Confirmed By:Kar Brooke
[2022-04-11] MEDS: BUDESONIDE 0.5 MG/2 ML VIAL (PULMICORT) NEB SCH ×2 (07:45→19:16)
[2022-04-11] MEDS: ALBUT/IPRATROP 3MG/0.5MG NEB 3 ML VIAL NEB SCH ×4 (07:46→19:16)
[2022-04-11] MEDS: METOPROLOL TARTRATE 25 MG TAB PO SCH ×2 (08:47→17:56)
[2022-04-11] MEDS: CALCIUM 600MG + VIT D 400 IU TAB PO SCH (08:47)
[2022-04-11] MEDS: guaiFENesin 600 MG TABCR PO SCH ×2 (08:48→20:55)
[2022-04-11] MEDS: MULTIVITAMIN TAB PO SCH (08:49)
[2022-04-11 09:36] LABS: INR 1.4 (0.9-1.1); Prothrombin Time 14.2 Seconds (9.0-12.0)
[2022-04-11 09:53] LABS: Albumin Globulin Ratio 1.5 (0.9-2); Albumin Level 3.7 gm/dl (3.4-5.0); BUN Creatinine Ratio 13.8 (10-20); Bilirubin,Total 0.9 mg/dl (0.2-1.0); Calcium 8.4 mg/dl (8.5-10.1); Creatinine Clr Calc Pharmacy 59.8 ml/min; Est GFR (African American) 89.9 ml/min; Est GFR (Non-African American) 77.6 ml/min; Globulin 2.5 gm/dl (2.5-4.0); Potassium 3.6 mmol/L (3.5-5.1); Total Protein 6.2 gm/dl (6.0-8.3)
[2022-04-11 10:18] LABS: Hematocrit (blood only) 37.8 % (40.1-51.0); Mean Corpuscular Hemoglobin 31.4 pg (25.0-34.0); Mean Corpuscular Hgb Conc 34.4 g/dL (32.0-36.0); Mean Corpuscular Volume 91.3 fL (80.0-100.0); Mean Platelet Volume 11.1 fL (9.4-12.4); Platelet Count 100 K/uL (130-400); RDW Coefficient of Variation 12.4 % (11.5-14.5); RDW Standard Deviation 41.1 fL (36.4-46.3); Red Blood Count 4.14 M/uL (4.63-6.08); White Blood Count 6.76 K/ul (4.8-10.8)
[2022-04-11 10:19] LABS: Basophils # (auto) 0.01 K/uL (0-0.2); Basophils % (auto) 0.1 %; Eosinophils # (auto) 0.01 K/uL (0-0.50); Eosinophils % (auto) 0.1 %; Immature Granulocytes # (auto) 0.02 K/uL (0.00-0.02); Immature Granulocytes % (auto) 0.3 %; Lymphocytes # (auto) 1.87 K/uL (1.2-3.4); Lymphocytes % (auto) 27.7 %; Monocytes % (auto) 11.8 %; Neutrophils # (auto) 4.05 K/uL (1.4-6.5); Platelet Estimate Decreased (Normal)
[2022-04-11] MEDS: WARFARIN SOD 3 MG TAB PO SCH (15:54)
[2022-04-11] MEDS ORDERED: WARFARIN SOD 2 MG TAB PO ONE (16:00)
[2022-04-11] MEDS ORDERED: WARFARIN SOD 0.5 MG TAB PO SCH (16:00)
--- NOTE | 2022-04-11 17:43 | Hospitalist Progress Note ---
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 Patient had some very light hemoptysis today with some blood-tinged sputum. No sue bleeding or clots. This is now completely resolved He did have a put pulse ox as low was 70s, but was 92% on 2 L nasal cannula 2-step evaluation today failed to demonstrate hypoxia with SaO2 maintaining at 94-95% The patient is beyond time for which Tamiflu would be of value, however, he will be placed on secondary bacterial infection treatment due to change in symptoms Ceftriaxone 1 g IV daily (Day #3) Azithromycin 500 mg IV daily (Day #3) Guaifenesin extended release 12 mg p.o. twice daily Pulmicort Respules 0.5 mg inhaled twice daily Nasal cannula oxygen, titrate titrate to keep pulse ox 94-95% (no tobacco abuse history or pulmonary disease in the past). Patient has not required supplemental oxygen for 24 hours NSS + KCl 20 milliequivalents at 60 mils per hour x1 L. This can be discontinued (2) Hypoxia: Plan: No prior use of supplemental oxygen at home Most likely secondary to acute influenza A Hypoxia has now resolved. SaO2 94% on room air (3) Acute confusion: Plan: Resolved. Suspected to be from Hycodan syrup. Patient alert and oriented x4 Daughter Kelly present and states that patient is back to baseline (4) Generalized weakness: Plan: Secondary to acute influenza A We will request PT/OT evaluation and treatment Encourage increase in activity as tolerated Ambulated well in the hallways today with no drop in SaO2 with exertion (5) Coronary artery disease: Plan: CAD/pacemaker status/sick sinus syndrome/hypertension/atrial fibrillation/long- term anticoagulant use- Continue metoprolol tartrate, warfarin INR sub-therapeutic at 1.4. Give additional 2 mg of Warfarin today (04/11/2022) for a total dose today of 5mg Continue Coumadin (warfarin) -3 mg p.o. on Monday and Monday; 3.5 mg p.o. every other day In review of home medication list, reconciliation needs to be updated to include the above dosing of warfarin (6) Pacemaker: Plan: Telemetry personally reviewed and pacer spikes are identified Placed approximately [address] Mehta. Routinely checked on an outpatient basis per cardiology No indication for interrogation at this time (7) Sick sinus syndrome: Plan: Continue with cardiac pacemaker as above Continue with Toprol tartrate. Home dose was 25,mg PO BID. Rate has been elevated in nettie low 100s. Patient not adequately anticoagulated as INR is sub therapeutic. Will increase Lopresor to 37.5mg PO BID (8) Hypertension: Plan: Hemodynamically stable Continue Lopressor 37.5 mg twice daily (increased from his home dose of 25 mg due to tachycardia) Vital signs per protocol (9) Anticoagulant long-term use: Plan: Secondary to atrial fibrillation INR is currently decreased to 1.4. Continue with warfarin dosing per outpatient schedule and follow INR while inpatient If INR remains low tomorrow and rate continues to be above 100 BPM, consider heparin gtt until INR is therapeutic (10) Atrial fibrillation: Plan: Permanent atrial fibrillation Pacemaker in place as well as rate controlling agent with Lopressor Continue chronic anticoagulation with warfarin 3 mg p.o. on Monday and Monday and 3.5 mg p.o. all other days Continue to monitor on telemetry during his acute illness phase (11) Dyslipidemia: Plan: Continue atorvastatin (12) Carcinoma of prostate: Plan: Continue tamsulosin Plan Patient seems to be considerably improved since admission Probable discharge home tomorrow Continue to monitor on telemetry secondary to atrial fibrillation and initial hy poxia Daughter Kelly Guaman updated by phone. She would like daily updates, if possible, at [phone] Admission and Anticipated Discharge Date Admission Date: April 09, 2022 Supervising Physician Co-Signing Physician Notes Attending Attestation - Chart reviewed, care plan d/w ALVERTO Beavers. I agree with the amaro components of his documentation. Hira Hill MD Subjective Attending: Dr. Hill Patient seen and examined in room 251. He continues on isolation precautions for influenza A. He is breathing well and seems to have less audible rhonchi. He still does have somewhat of a hoarse voice but this also seems improved. Patient reports that his hemoptysis is completely resolved. Less sputum that is thinner than prior. No difficulty with clearing secretions. Patient denies any fever or chills. He has had some elevation of his heart rate from the 60s into the 90s and low 100s but is asymptomatic and unaware of tachycardia. No lower extremity edema or pain. No headache. No new acute findings. Review of Systems Review of Systems: A total of 10 systems was reviewed and is negative other than as listed in the HPI Physical Exam Physical Exam: GENERAL : No acute distress EYES: No icterus, gaze conjugate NOSE: No evidence of epistaxis MOUTH: No lesions or candidiasis NECK: Supple LUNGS: Bibasilar coarse Rales. No rhonchi in the upper [place]. No appreciation of bronchospasm HEART: Regular, rate in the 90s. Telemetry reviewed. Patient has normal sinus rhythm with a paced rhythm ABDOMEN: Soft, NT, ND, BS Present EXTREMITIES: No LE edema, pedal pulses intact NEURO: A&OX3 Results & Data Results & Data ([facility]) Vital Signs (Past 12 Hours) Vital Signs Temp Pulse Pulse Pulse Pulse Pulse Resp 04/11/22 15:25 36.7 C 109 H 18 04/11/22 16:22 102 H 18 04/11/22 16:16 110 H 99 H 104 H 04/11/22 14:05 97 H 04/11/22 08:47 36.8 C 106 H 16 04/11/22 12:15 04/11/22 11:47 63 18 04/11/22 11:29 36.9 C 67 18 04/11/22 08:34 37.0 C 106 H 18 04/11/22 07:49 04/11/22 07:46 77 18 04/11/22 06:01 74 Resp Resp Resp BP BP Pulse Ox Pulse Ox 04/11/22 15:25 114/73 95 04/11/22 16:22 94 04/11/22 16:16 18 18 18 95 04/11/22 14:05 04/11/22 08:47 114/64 96 04/11/22 12:15 93 04/11/22 11:47 93 04/11/22 11:29 118/72 95 04/11/22 08:34 109/58 L 90 04/11/22 07:49 04/11/22 07:46 94 04/11/22 06:01 Pulse Ox Pulse Ox O2 Del Method 04/11/22 15:25 Room Air 04/11/22 16:22 Room Air 04/11/22 16:16 94 93 04/11/22 14:05 04/11/22 08:47 Room Air 04/11/22 12:15 04/11/22 11:47 Room Air 04/11/22 11:29 Room Air 04/11/22 08:34 Room Air 04/11/22 07:49 Room Air 04/11/22 07:46 Room Air 04/11/22 06:01 Critical Care Results & Data Vital Signs (Past 12 Hours) Vital Signs Temp Pulse Pulse Pulse Pulse Pulse Resp 04/11/22 15:25 36.7 C 109 H 18 04/11/22 16:22 102 H 18 04/11/22 16:16 110 H 99 H 104 H 04/11/22 14:05 97 H 04/11/22 08:47 36.8 C 106 H 16 04/11/22 12:15 04/11/22 11:47 63 18 04/11/22 11:29 36.9 C 67 18 04/11/22 08:34 37.0 C 106 H 18 04/11/22 07:49 04/11/22 07:46 77 18 04/11/22 06:01 74 Resp Resp Resp BP BP Pulse Ox Pulse Ox 04/11/22 15:25 114/73 95 04/11/22 16:22 94 04/11/22 16:16 18 18 18 95 04/11/22 14:05 04/11/22 08:47 114/64 96 04/11/22 12:15 93 04/11/22 11:47 93 04/11/22 11:29 118/72 95 04/11/22 08:34 109/58 L 90 04/11/22 07:49 04/11/22 07:46 94 04/11/22 06:01 Pulse Ox Pulse Ox O2 Del Method 04/11/22 15:25 Room Air 04/11/22 16:22 Room Air 04/11/22 16:16 94 93 04/11/22 14:05 04/11/22 08:47 Room Air 04/11/22 12:15 04/11/22 11:47 Room Air 04/11/22 11:29 Room Air 04/11/22 08:34 Room Air 04/11/22 07:49 Room Air 04/11/22 07:46 Room Air 04/11/22 06:01 Lab & Micro Results (Past 24 Hours) No Data to Display No Data to Display No Data to Display I & O Totals 24 Hours 04/10/22 04/11/22 04/12/22 06:59 06:59 06:59 Intake Total 405 / 405 2155 / 2155 825 / 825 Output Total 100 / 100 250 / 250 Balance 305 / 305 1905 / 1905 825 / 825 Cumulative 04/09/22 17:21 thru 04/11/22 17:14 Intake Total 3385 Output Total 350 Balance 3035 RT Ventilator Mngmt (Last Documented) Ventilator Ordered Settings Respiratory Rate [Recovery] 18 04/11/22 16:16 Respiratory Rate [Exercise] 18 04/11/22 16:16 Respiratory Rate [Resting] 18 04/11/22 16:16 Respiratory Rate 18 04/11/22 16:22 Ventilator - PT Measurements Respiratory Rate [Recovery] 18 Respiratory Rate [Exercise] 18 Respiratory Rate [Resting] 18 Respiratory Rate 18 PG Care Time/CCT Total # of Minutes Spent Total Time Spent with Patient: Total time spent is greater than 50% in coordination of care (as documented) at patient's floor/unit and/or counseling patient: Coding Level of Care Code 04644 Subseq Hosp Care Lvl 2 Diagnoses Influenza A J10.1 Hypoxia R09.02 Acute confusion R41.0 Generalized weakness R53.1 Coronary artery disease I25.10 Associated angina: without angina Coronary Disease-Associated Artery/Lesion type: [place] artery [place] vs. transplanted heart: [place] heart Pacemaker Z95.0 Sick sinus syndrome I49.5 Hypertension I10 Hypertension type: primary hypertension Anticoagulant long-term use Z79.01 Atrial fibrillation I48.0 Atrial fibrillation type: paroxysmal Dyslipidemia E78.5 Carcinoma of prostate C61 (1) Coronary artery disease Associated angina: without angina Coronary Disease-Associated Artery/Lesion type: [place] artery [place] vs. transplanted heart: [place] heart Qualified Code(s): I25.10 - Atherosclerotic heart disease of [place] coronary artery without angina pectoris (2) Atrial fibrillation Atrial fibrillation type: paroxysmal Qualified Code(s): I48.0 - Paroxysmal atrial fibrillation (3) Hypertension Hypertension type: primary hypertension Qualified Code(s): I10 - Essential (primary) hypertension
[2022-04-11] MEDS: ATORVASTATIN 20 MG TAB PO SCH (20:56)
[2022-04-11] MEDS: ZINC SULFATE 220 MG CAPSULE PO SCH (20:56)
[2022-04-11] MEDS: CHOLECALCIFEROL 1,000 UNITS 25 MCG TAB PO SCH (20:57)
[2022-04-11] MEDS: TAMSULOSIN HCL 0.4 MG CAP PO SCH (20:57)
[2022-04-11] MEDS: cefTRIAXone SODIUM 1,000 MG in DEXTROSE 5% AD-VAN 50 ML IV SCH (21:08)
[2022-04-11] MEDS: AZITHROMYCIN 500 MG in DEXTROSE 5% 250 ML IV SCH (22:02)
[2022-04-12] MEDS: ALBUT/IPRATROP 3MG/0.5MG NEB 3 ML VIAL NEB SCH ×2 (07:34→11:13)
[2022-04-12] MEDS: BUDESONIDE 0.5 MG/2 ML VIAL (PULMICORT) NEB SCH (07:34)
[2022-04-12] MEDS: METOPROLOL TARTRATE 25 MG TAB PO SCH (08:03)
[2022-04-12] MEDS: guaiFENesin 600 MG TABCR PO SCH (08:04)
[2022-04-12] MEDS: CALCIUM 600MG + VIT D 400 IU TAB PO SCH (08:05)
[2022-04-12] MEDS: MULTIVITAMIN TAB PO SCH (08:05)
[2022-04-12 09:07] LABS: Albumin Globulin Ratio 1.4 (0.9-2); Albumin Level 3.7 gm/dl (3.4-5.0); BUN Creatinine Ratio 15.8 (10-20); Bilirubin,Total 0.8 mg/dl (0.2-1.0); Calcium 8.4 mg/dl (8.5-10.1); Creatinine Clr Calc Pharmacy 56.6 ml/min; Est GFR (African American) 77.2 ml/min; Est GFR (Non-African American) 66.6 ml/min; Globulin 2.6 gm/dl (2.5-4.0); Potassium 3.7 mmol/L (3.5-5.1); Total Protein 6.3 gm/dl (6.0-8.3)
[2022-04-12 09:18] LABS: INR 1.5 (0.9-1.1); Prothrombin Time 16.1 Seconds (9.0-12.0)
[2022-04-12 09:19] LABS: Hematocrit (blood only) 39.6 % (40.1-51.0); Hemoglobin 13.4 g/dl (14.0-18.0); Mean Corpuscular Hemoglobin 31.5 pg (25.0-34.0); Mean Corpuscular Hgb Conc 33.8 g/dL (32.0-36.0); Mean Corpuscular Volume 93.2 fL (80.0-100.0); Mean Platelet Volume 10.8 fL (9.4-12.4); Platelet Count 109 K/uL (130-400); RDW Coefficient of Variation 12.4 % (11.5-14.5); RDW Standard Deviation 42.5 fL (36.4-46.3); Red Blood Count 4.25 M/uL (4.63-6.08); White Blood Count 6.61 K/ul (4.8-10.8)
[2022-04-12 09:34] LABS: Basophils # (auto) 0.01 K/uL (0-0.2); Basophils % (auto) 0.2 %; Echinocytes 1+; Eosinophils # (auto) 0.03 K/uL (0-0.50); Eosinophils % (auto) 0.5 %; Immature Granulocytes # (auto) 0.03 K/uL (0.00-0.02); Immature Granulocytes % (auto) 0.5 %; Lymphocytes # (auto) 1.21 K/uL (1.2-3.4); Lymphocytes % (auto) 18.3 %; Monocytes # (auto) 0.55 K/uL (0.24-0.82); Monocytes % (auto) 8.3 %; Neutrophils # (auto) 4.78 K/uL (1.4-6.5); Neutrophils % (auto) 72.2 %
--- NOTE | 2022-04-12 12:10 | Discharge Summary ---
Date of Service April 12, 2022 Admission HPI Per Admitting Provider The patient is an 87-year-old male with a past medical history including pacemaker status for sick sinus syndrome, BPH, prostate cancer, normocytic anemia, atrial fibrillation, CAD, dyslipidemia, hyperglycemia. He was seen in the emergency department earlier in the day and was diagnosed with influenza A. As part of his treatment, he was given Hycodan syrup, having tolerated the first dose, and then about 4 hours later after receiving the second dose, he developed worsening symptoms of confusion and weakness. Unclear at this time whether there is a causal association, but the patient has been feeling progressively more weak even prior to being seen in the emergency department this morning. Principal Diagnosis influenza A, weakness, Acute hypoxic respiratory failure, metabolic encephalopathy Discharge Exam Constitutional WD/WN, vitals as above Eyes PERRL, conjunctivae normal, anicteric sclerae Neck trachea midline, no thyromegaly Respiratory normal respiratory effort, lungs clear to auscultation Cardiovascular Rate/Rhythm: + irregularly irregular Chest (Breasts) normal inspection/palpation of breasts Gastrointestinal (Abdomen) normal bowel sounds, soft, nontender, no hepatosplenomegaly Musculoskeletal no cyanosis or clubbing, extremities motor strength 5/5 Skin no rashes, warm and dry Neurologic PERRL, EOMI, accommodation nl, no face palsy, no dysarthria Psychiatric A+Ox3, euthymic affect Genitourinary no testicular masses, no penis abnormality Lymphatic no cervical or axillary lymphadenopathy Discharge Data Allergies Allergy/AdvReac Type Severity Reaction Status Date / Time omeprazole AdvReac Intermediate GI UPSET Verified 04/09/22 18:39 Consultations 04/09/22 19:17 ED Decision to Admit Stat Hospital Course (1) Influenza A: Influenza A with hypoxia. Treated with tamiflu. Much improved. Hemoptysis resolved. Treated with tamiflu, Ceftriaxone, azithromycin (2) Hypoxia: No prior use of supplemental oxygen at home. Now resolved. On RA (3) Acute confusion: Resolved. Suspected transient metabolic encephalopathy (4) Generalized weakness: Secondary to acute influenza A. Resolved with PT/OT (5) Coronary artery disease: CAD/pacemaker status/sick sinus syndrome/hypertension/atrial fibrillation/long- term anticoagulant use- continue metoprolol tartrate, warfarin. (6) Pacemaker: stable. Outpatient cardiology management. (7) Sick sinus syndrome: Continue with cardiac pacemaker as above. Meds as usual except for up-titration of metoprolol. (8) Hypertension: Hemodynamically stable. (9) Anticoagulant long-term use: Secondary to atrial fibrillation. Continue coumadin therapy (10) Atrial fibrillation: Permanent atrial fibrillation. Med management. Coumadin therapy. (11) Dyslipidemia: Continue atorvastatin (12) Carcinoma of prostate: Continue tamsulosin Plan home today, 04/12. Daughter notified by phone. Total Time Total Time Spent Total Time Spent (In Minutes): 35 minutes Discharge Plan Discharge Items Patient Disposition: Home - Self-Care Reason For Visit: ACUTE RESP FAILURE WITH HYPOXIA, INFLUENZA A WITH Discharge Diagnosis: influenza A, acute hypoxic respiratory failure Activity: Resume your previous activity Non-emergency contact: Primary Care Provider Call non-emergency contact if: you have any medication questions and your symptoms worsen Follow-up/Referrals: Jarek Salas DO [Primary Care Provider] - Diet: Heart Healthy Addtl Attending Provider Instructions: metoprolol dosage has been up titrated Pending Studies at Discharge: No Stand-Alone Forms: My [facility] [place] [employer], Smoking Cessation Medications and DC Order Prescriptions: New metoprolol tartrate 25 mg Tablet 37.5 mg PO BID Qty: 30 0RF Continued warfarin 3 mg tablet See Rx Instructions .ROUTE .COMPLEX Qty: 90 3RF Protocol: Dose Management Condition: Monday Dose/Route: 3.5 mg Instruction: 3.5 x 1 mg tablets Condition: Monday Dose/Route: 3 mg Instruction: 1 x 3 mg tablet Condition: Monday Dose/Route: 3.5 mg Instruction: 3.5 x 1 mg tablets Condition: Monday Dose/Route: 3.5 mg Instruction: 3.5 x 1 mg tablets Condition: Dose/Route: 3.5 mg Instruction: 3.5 x 1 mg tablets Condition: Monday Dose/Route: 3 mg Instruction: 1 x 3 mg tablet Condition: Monday Dose/Route: 3.5 mg Instruction: 3.5 x 1 mg tablets Protocol Text: Adjustment Start Date: Monday03/16/22 INR Value: 2.0 INR Date: 03/16/22 Recheck Date: 04/13/22 Dose Instruction: TAKE 1 TABLET BY MOUTH DIRECTED, SEE PROTOCOL Rx Instructions: TAKES 3.5 MG ON MON & MON--TAKES WITH 1/2 OF 1 MG TAB., SEE PROTOCOL atorvastatin 20 mg tablet 20 mg PO HS nystatin-triamcinolone 100,000-0.1 unit/gram-% ointment 1 applic TOP BID PRN (Reason: Skin Irritation) Rx Instructions: Dispense 3 tubes cholecalciferol (vitamin D3) 2,000 unit capsule 2,000 unit PO HS Galzin 25 mg (zinc) capsule 25 mg PO HS multivitamin Tablet 1 tab PO DAILY Calcium 600 + D(3) 600 mg calcium- 200 unit Capsule 1 tab PO DAILY hydrocodone-homatropine [Hycodan (with homatropine)] 5-1.5 mg/5 mL Syrup 5 ml PO Q4H PRN (Reason: Cough) Rx Instructions: PER PT'S DAUGHTER "HAD DOSES AT 0920 & 1330" naloxone 4 mg/actuation [place],Non-Aerosol 4 mg INTRANASAL DIRECTED PRN (Reason: OVERSEDATION) tamsulosin 0.4 mg capsule 0.4 mg PO HS warfarin 1 mg tablet 1 mg PO [id number] Protocol: Dose Management Condition: Monday Dose/Route: 3.5 mg Instruction: 3.5 x 1 mg tablets Condition: Monday Dose/Route: 3 mg Instruction: 1 x 3 mg tablet Condition: Monday Dose/Route: 3.5 mg Instruction: 3.5 x 1 mg tablets Condition: Monday Dose/Route: 3.5 mg Instruction: 3.5 x 1 mg tablets Condition: Dose/Route: 3.5 mg Instruction: 3.5 x 1 mg tablets Condition: Monday Dose/Route: 3 mg Instruction: 1 x 3 mg tablet Condition: Monday Dose/Route: 3.5 mg Instruction: 3.5 x 1 mg tablets Protocol Text: Adjustment Start Date: Monday03/16/22 INR Value: 2.0 INR Date: 03/16/22 Recheck Date: 04/13/22 Rx Instructions: TAKES ON SUN, , MON, , & SAT EVENINGS. cyclobenzaprine 5 mg tablet 2.5 mg PO HS PRN (Reason: muscle spasm) Discontinued metoprolol tartrate 25 mg tablet 25 mg PO BID Qty: 180 3RF Discharge Orders: Discharge Order (Routine); Ordered 04/12/22 Ordered By: Horace Gomes Admission Data Admit Date/Time: 04/09/22 19:53 Attending Provider: Horace Gomes Admit Provider: Patrick Do Primary Care Provider: Jarek Salas Other Providers: Patrick Do Coding Level of Care Code D/C DAY MANAGEMENT >30 MINS Diagnoses Influenza A J10.1 Hypoxia R09.02 Acute confusion R41.0 Generalized weakness R53.1 Coronary artery disease I25.10 Coronary Disease-Associated Artery/Lesion type: [place] artery [place] vs. transplanted heart: [place] heart Associated angina: without angina Pacemaker Z95.0 Sick sinus syndrome I49.5 Hypertension I10 Hypertension type: primary hypertension Anticoagulant long-term use Z79.01 Atrial fibrillation I48.0 Atrial fibrillation type: paroxysmal Dyslipidemia E78.5 Carcinoma of prostate C61
[2022-04-12] MEDS ORDERED: WARFARIN SOD 3 MG TAB PO SCH (16:00)
== END 2022-04-12 16:11 | disposition home or self-care (01) | DRG 865 ==
LOC: ED 17:21 → SUATTDRO 19:53 → 2W 19:53

== ENCOUNTER 2023-08-10 12:46 | Observation (INO) ==
--- NOTE | 2023-08-10 14:11 | XRay Report ---
XR chest 1V portable HISTORY: Dizziness COMPARISON: Chest 06/09/2023. FINDINGS: No pneumothorax. No pleural effusions. The cardiac silhouette remains mildly enlarged. Biba silar linear densities persist and favor subsegmental atelectasis are scarring. Otherwise, no new foc al lung consolidations to suggest a pneumonia. No evidence for pulmonary edema. There is a punctate c alcified granuloma within the right upper lobe. No acute fractures. There is a left-sided dual-chambe r pacemaker. IMPRESSION: No significant change compared to the prior study. No acute process. ACT 112: Negative or not required by law. Electronically signed by: Ubaldo Duckworth M.D. 08/10/2023 2:10 PM
[2023-08-10 14:39] LABS: Basophils # (auto) 0.03 K/uL (0.00-0.20); Basophils % (auto) 0.4 %; Eosinophils # (auto) 0.07 K/uL (0.00-0.50); Hematocrit (blood only) 40.9 % (42.0-52.0); Hemoglobin 13.5 g/dl (14.0-18.0); Immature Granulocytes # (auto) 0.02 K/uL (0.01-0.20); Immature Granulocytes % (auto) 0.3 %; Lymphocytes # (auto) 1.32 K/uL (1.20-3.40); Lymphocytes % (auto) 19.7 %; Mean Corpuscular Hemoglobin 31.1 pg (25.0-34.0); Mean Corpuscular Volume 94.2 fL (80.0-100.0); Mean Platelet Volume 10.9 fL (9.4-12.4); Monocytes # (auto) 0.83 K/uL (0.11-0.59); Monocytes % (auto) 12.4 %; Neutrophils # (auto) 4.44 K/uL (1.40-6.50); Neutrophils % (auto) 66.2 %; Platelet Count 127 K/uL (130-400); RDW Coefficient of Variation 12.2 % (11.5-14.5); RDW Standard Deviation 42.5 fL (36.4-46.3); Red Blood Count 4.34 M/uL (4.70-6.10); White Blood Count 6.71 K/ul (4.8-10.8)
--- NOTE | 2023-08-10 14:41 | Emergency Department Note ---
Impression & Plan Near syncope, Sick sinus syndrome, Frequent PVCs ED Provider Note Provider: Derick Mallory MD DATE OF SERVICE: 08/10/2023 CHIEF COMPLAINT: Irregular low heart rate, fuzzy feeling HISTORY OF PRESENT ILLNESS: Patient is a 88-year-old gentleman history of atrial fibrillation, sick sinus syndrome with pacemaker, CAD, and hypertension presenting here today via ambulance from his home. Reports he been following with cardiology for some time. His pacemaker battery has been low and he is scheduled for a replacement in several weeks. Takes his blood pressure daily. Did note this morning that his heart rate was irregular. Was taking his pulse and it seemed like it went to the 40s at times. Also states that he felt a bit fuzzy or foggy in his head like he might pass out but did not lose conscious. No falls. No headache. Feeling somewhat better at this time. Denies any chest pain or shortness of breath at any time. No fevers reported. Patient endorses medication compliance and is on Coumadin PAST MEDICAL HISTORY: As noted above MEDICATIONS: Reviewed home medications SOCIAL HISTORY: Lives at home but presents with family at bedside PHYSICAL EXAM: GENERAL: alert and oriented in no acute distress on stretcher family at bedside Head: normocephalic and atraumatic EYES: No injection, discharge or icterus. EOMI. NECK: Trachea midline. ENT: Mucous membranes pink and moist. LUNGS: Airway patent. No retractions. Breath sounds clear HEART: Irregular rate and rhythm. No chest wall tenderness with a left upper healed subcutaneous pacemaker appreciated ABDOMEN: Soft and non-tender, without guarding or rebound. SKIN: Acyanotic, warm, dry, without rashes EXTREMITIES: Without swelling, tenderness or deformity NEUROLOGICAL: No focal deficits moving all extremities. No aphasia. No facial droop or slurred speech. Ambulatory. EK bpm atrially paced rhythm with frequent PVCs. Right bundle branch and left anterior fascicular block noted. No acute ST segment elevation with nonspecific anterior T wave inversions. QTc 461. CONTINUOUS CARDIAC MONITORING: was ordered and showed a heart rate of 60s-70s bpm in atrially paced rhythm occasional PVCs Patient's laboratory studies and imaging reviewed. Differential includes Premature contractions, electrolyte abnormality, cardiac dysrhythmia, thyroid dysfunction, pulmonary embolism, infection, gastrointestinal, intracranial bleed/neurological abnormality as well as other pathologies. IMPRESSION/MEDICAL DECISION MAKING: Patient denies significant symptoms currently. Telemetry appears to show atrially paced rhythm with occasional PVCs occurring. No focal neurological deficit or headache. No trauma. Doubt acute intracranial bleed. Pacemaker interrogation ordered. Basic blood work obtained. Chest x-ray without significant abnormality or evidence of obvious pacemaker lead failure. Electrolytes were checked as well as blood counts. INR checked. Review of prior cardiac notes indicate the patient with a long history of PVCs in the past and atrial fibrillation. Had amiodarone toxicity some decades ago. Blood work without significant leukocytosis or any significant anemia. Platelets borderline low at 127 but this is near his baseline. Electrolytes without significant abnormality normal renal function. Troponin normal. Pacemaker interrogation completed and by the available summary report does show the patient does need a battery change with estimated life less than 3 months. Does show initiated lower rate of 60 bpm and that almost 95% of the time he has been atrially paced ventricularly sensed. No paced terminated episodes are reported since July 18 on the report. No other significant abnormality reported on the summary sheet from interrogation. Patient was able to ambulate here. Feeling somewhat improved at this time. Occasional PVCs. Discussed with patient's daughter at bedside who is a former nurse. Shared decision making she wished for the patient be observed overnight for monitor for additional ectopy or abnormalities given his near syncope. Discussed with the hospitalist team. DIAGNOSIS: Arrhythmia, lightheadedness/near syncope, long-term anticoagulation DISPOSITION: Hospitalist will evaluate Patient was agreeable with this plan. Past Med/Surg History Medical History Lesion of ear canal biopsy 06/2023- benign History of COVID-19 2022, resolved Prediabetes History of prostate cancer (2006) Paroxysmal atrial fibrillation Pacemaker (2012) follows with Dr Kern, [employer], last checked 04/05/2023 Coronary artery disease History of hemorrhoids Sick sinus syndrome Pancytopenia Prior Hematology Evaluation Dyslipidemia Carcinoma of prostate (10/03/12) Radiation Tx, followed by Urology Anticoagulant long-term use Warfarin BPH (benign prostatic hyperplasia) Hypertension Surgical History History of ear surgery rt canal lesion biopsy on 06/23/23-Dr. Deal History of radiation therapy History of PTCA 1992-myocardial infarction History of colonoscopy Atrial fibrillation status post cardioversion electrical cardioversion to sinus rhythm History of placement of stent in LAD coronary artery (10/03/12) History of angioplasty History of permanent cardiac pacemaker placement History of surgery on extremity repair of broken finger S/P left knee arthroscopy Family History Father Prostate cancer Heart disease Heart disease Brother Heart disease Prostate cancer Heart disease Myocardial infarction Other No family history of bleeding disorder No pertinent family history Denies family history of Ovarian cancer Diabetes Breast cancer Colorectal cancer Hypertension Stroke Social History Smoking Status: Never smoker Second Hand Exposure: No; Do You Dip or Chew Tobacco: No; Hx Alcohol Use: No Hx Substance Use: No Preferred Language: Angolan Communication Ability: Effective Visual Impairment: Limited Hearing Ability: Use of Hearing Aid Inventory Associate Required: No Beliefs That Will Affect Care: None marital status: Current Living Situation: Spouse Current Living Situation Comment: Lives with Regine current occupational status: retired How many Children do You have: 1 Feels Safe at Home: Yes Childhood Exposure to Second-Hand Smoke: No Diet: regular Diet Comment: regular caffeine: No during the past year weight has: remained stable Dental Care, Regularly: Yes Physical Activity Frequency: Daily Seatbelt Use: always Sunscreen Use: No (WEARS HAT) Do you think of yourself as: straight/heterosexual Assistive Devices: Glasses and Hearing Aid - Bilateral Allergies Allergies Allergy/AdvReac Type Severity Reaction Status Date / Time omeprazole AdvReac Intermediate GI UPSET Verified 07/19/23 13:05 Home Meds Home Medications Medication Instructions Recorded Confirmed calcium carbonate 600 mg-vitamin 1 tab PO BID 07/01/18 08/10/23 D3 5 mcg (200 unit) capsule (Calcium 600 + D(3)) multivitamin 1 tab PO QAM 07/01/18 08/10/23 cholecalciferol (vitamin D3) 50 2,000 unit PO HS 09/19/18 08/10/23 mcg (2,000 unit) capsule nystatin-triamcinolone 100,000 1 applic topical BID PRN Skin 03/29/21 08/10/23 unit/gram-0.1 % topical ointment Irritation tamsulosin 0.4 mg capsule 0.4 mg PO UD 06/14/23 08/10/23 zinc 50 mg tablet 50 mg PO HS 06/14/23 08/10/23 warfarin 1 mg tablet See Rx Instructions PO DAILY 07/05/23 08/10/23 warfarin 3 mg tablet See Rx Instructions PO DAILY 07/05/23 08/10/23 Previous Rx's Medication Instructions Recorded metoprolol tartrate 25 mg tablet 25 mg PO BID #180 tabs 10/12/22 ipratropium bromide 21 mcg (0.03 2 spray intranasal BID #90 mL 07/19/23 %) nasal spray atorvastatin 20 mg tablet 20 mg PO HS #90 tabs 07/20/23 Results & Data (ED) Vital Signs Vital Signs - 24 hr 08/10/23 12:47 08/10/23 13:07 08/10/23 13:10 Temperature 36.4 C L Temperature Source Temporal Artery Scan Pulse Rate 63 65 Pulse Rate [Apical] 66 Pulse Rate from SpO2 Sensor Pulse Rhythm Irregular Pulse Strength Normal Respiratory Rate 16 17 Respiratory Effort / Characteristics Non-Labored Spontaneous Non-Labored Spontaneous Respiratory Depth Normal Normal Respiratory Pattern Regular Blood Pressure 156/70 H Blood Pressure [Right Arm] 148/80 H Blood Pressure Mean 98 Blood Pressure Mean [Right Arm] 102 Blood Pressure Position Sitting Pulse Oximetry 96 96 Oxygen Delivery Method Room Air Room Air Sepsis Recent Fever Within 48 Hours No Sepsis New/Unexplained Change in Mental Status No Sepsis Action Taken by Nursing No Action Required 08/10/23 13:26 08/10/23 13:30 08/10/23 13:34 Temperature Temperature Source Pulse Rate 66 Pulse Rate [Apical] Pulse Rate from SpO2 Sensor 48 L Pulse Rhythm Pulse Strength Respiratory Rate 16 Respiratory Effort / Characteristics Respiratory Depth Respiratory Pattern Blood Pressure 139/83 Blood Pressure [Right Arm] Blood Pressure Mean 101 Blood Pressure Mean [Right Arm] Blood Pressure Position Pulse Oximetry 96 96 Oxygen Delivery Method Room Air Room Air Room Air Sepsis Recent Fever Within 48 Hours Sepsis New/Unexplained Change in Mental Status Sepsis Action Taken by Nursing 08/10/23 14:00 08/10/23 14:01 08/10/23 14:01 Temperature Temperature Source Pulse Rate 60 60 Pulse Rate [Apical] Pulse Rate from SpO2 Sensor 59 L 60 Pulse Rhythm Pulse Strength Respiratory Rate 21 16 Respiratory Effort / Characteristics Respiratory Depth Respiratory Pattern Blood Pressure 147/73 H Blood Pressure [Right Arm] Blood Pressure Mean 96 Blood Pressure Mean [Right Arm] Blood Pressure Position Pulse Oximetry 96 96 Oxygen Delivery Method Sepsis Recent Fever Within 48 Hours Sepsis New/Unexplained Change in Mental Status Sepsis Action Taken by Nursing 08/10/23 14:30 08/10/23 14:30 08/10/23 15:00 Temperature Temperature Source Pulse Rate 62 62 Pulse Rate [Apical] Pulse Rate from SpO2 Sensor 62 56 L Pulse Rhythm Pulse Strength Respiratory Rate 17 15 Respiratory Effort / Characteristics Respiratory Depth Respiratory Pattern Blood Pressure 163/92 H Blood Pressure [Right Arm] Blood Pressure Mean 127 Blood Pressure Mean [Right Arm] Blood Pressure Position Pulse Oximetry 97 94 Oxygen Delivery Method Sepsis Recent Fever Within 48 Hours Sepsis New/Unexplained Change in Mental Status Sepsis Action Taken by Nursing 08/10/23 15:00 08/10/23 16:30 Temperature Temperature Source Pulse Rate 60 Pulse Rate [Apical] Pulse Rate from SpO2 Sensor Pulse Rhythm Pulse Strength Respiratory Rate Respiratory Effort / Characteristics Respiratory Depth Respiratory Pattern Blood Pressure 138/82 Blood Pressure [Right Arm] Blood Pressure Mean 120 Blood Pressure Mean [Right Arm] Blood Pressure Position Pulse Oximetry Oxygen Delivery Method Sepsis Recent Fever Within 48 Hours Sepsis New/Unexplained Change in Mental Status Sepsis Action Taken by Nursing Laboratory Data 08/10/23 13:24 08/10/23 13:24 Lab Results 08/10/23 Range/Units 13:24 WBC 6.71 (4.8-10.8) K/ul RBC 4.34 L (4.70-6.10) M/uL Hgb 13.5 L (14.0-18.0) g/dl Hct 40.9 L (42.0-52.0) % MCV 94.2 (80.0-100.0) fL MCH 31.1 (25.0-34.0) pg MCHC 33.0 (32.0-36.0) g/dL RDW Std Deviation 42.5 (36.4-46.3) fL RDW Coeff of Juan Luis 12.2 (11.5-14.5) % Plt Count 127 L (130-400) K/uL MPV 10.9 (9.4-12.4) fL Immature Gran % (Auto) 0.3 % Neut % (Auto) 66.2 % Lymph % (Auto) 19.7 % [place] % (Auto) 12.4 % Eos % (Auto) 1.0 % Baso % (Auto) 0.4 % Neut # (Auto) 4.44 (1.40-6.50) K/uL Lymph # (Auto) 1.32 (1.20-3.40) K/uL [place] # (Auto) 0.83 H (0.11-0.59) K/uL Eos # (Auto) 0.07 (0.00-0.50) K/uL Baso # (Auto) 0.03 (0.00-0.20) K/uL Immature Gran # (Auto) 0.02 (0.01-0.20) K/uL PT 22.4 H (9.0-12.0) Seconds INR 2.1 H (0.9-1.1) APTT 41 H (21-31) Seconds PTT Ratio 1.5 Sodium 138 (136-145) mmol/L Potassium 4.1 (3.5-5.1) mmol/L Chloride 103 (98-107) mmol/L Carbon Dioxide 30 (21-32) mmol/L Anion Gap 5 (3-11) BUN 19 (6-23) mg/dl Creatinine 0.91 (0.6-1.4) mg/dl Est Cr Clr Drug Dosing 56.1 ml/min Est GFR ( Amer) 86.9 ml/min Est GFR (Non-Af Amer) 75.0 ml/min BUN/Creatinine Ratio 20.9 H (10-20) Glucose 115 H (70-99(Fasting)) mg/dl Calcium 9.6 (8.6-10.3) mg/dl Total Bilirubin 0.7 (0.2-1.0) mg/dl AST 24 (13-39) U/L ALT 15 (7-52) U/L Alkaline Phosphatase 73 (34-104) U/L Troponin I High Sens 6.2 (0-20) pg/ml Total Protein 6.6 (6.0-8.3) gm/dl Albumin 4.1 (3.4-5.0) gm/dl Globulin 2.5 (2.5-4.0) gm/dl Albumin/Globulin Ratio 1.6 (0.9-2) Imaging Data Radiologist's Impression: Chest X-Ray 08/10/23 13:34 XR chest 1V portable HISTORY: Dizziness COMPARISON: Chest 06/09/2023. FINDINGS: No pneumothorax. No pleural effusions. The cardiac silhouette remains mildly enlarged. Bibasilar linear densities persist and favor subsegmental atelectasis are scarring. Otherwise, no new focal lung consolidations to suggest a pneumonia. No evidence for pulmonary edema. There is a punctate calcified granuloma within the right upper lobe. No acute fractures. There is a left-sided dual-chamber pacemaker. IMPRESSION: No significant change compared to the prior study. No acute process. ACT 112: Negative or not required by law. Electronically signed by: Ubaldo Duckworth M.D. 08/10/2023 2:10 PM Discharge Plan Visit Data Chief Complaint: Arrhythmia/Palpitations Stated Complaint: HEART OUT OF RHYTHM/PULSE 47/HEAD SPINNING ED Provider: Derick Mallory Discharge Problem: Near syncope, Sick sinus syndrome, Frequent PVCs Patient Disposition: Being Evaluated by Hospitalist Forms Stand Alone Forms: My [facility] Prescriptions Prescriptions: No Action warfarin 1 mg tablet See Rx Instructions PO DAILY Rx Instructions: 1/2 tab as part of 3 1/2 mg dose on Monday, Monday (3 mg all other days) orally daily; warfarin 3 mg tablet See Rx Instructions PO DAILY Rx Instructions: 1 tab daily as part of 3 1/2 mg dose on Monday, Monday (3 mg all other days) orally daily; metoprolol tartrate 25 mg tablet 25 mg PO BID Qty: 180 3RF ipratropium bromide 21 mcg (0.03 %) spray,non-aerosol 2 spray intranasal BID Qty: 90 3RF Rx Instructions: administer into each nostril atorvastatin 20 mg tablet 20 mg PO HS Qty: 90 3RF nystatin-triamcinolone 100,000-0.1 unit/gram-% ointment 1 applic TOP BID PRN (Reason: Skin Irritation) Rx Instructions: Dispense 3 tubes cholecalciferol (vitamin D3) 2,000 unit capsule 2,000 unit PO HS multivitamin Tablet 1 tab PO QAM Calcium 600 + D(3) 600 mg calcium- 200 unit Capsule 1 tab PO BID zinc 50 mg Tablet 50 mg PO HS tamsulosin 0.4 mg capsule 0.4 mg PO UD Patient Comments: one tablet every three days Referrals Referrals: Anette Collins DO [Primary Care Provider] -
[2023-08-10 14:43] LABS: Albumin Globulin Ratio 1.6 (0.9-2); Albumin Level 4.1 gm/dl (3.4-5.0); BUN Creatinine Ratio 20.9 (10-20); Bilirubin,Total 0.7 mg/dl (0.2-1.0); Calcium 9.6 mg/dl (8.6-10.3); Creatinine Clr Calc Pharmacy 56.1 ml/min; Est GFR (African American) 86.9 ml/min; Globulin 2.5 gm/dl (2.5-4.0); Potassium 4.1 mmol/L (3.5-5.1); Total Protein 6.6 gm/dl (6.0-8.3)
[2023-08-10 14:50] LABS: Troponin I High Sensitivity 6.2 pg/ml (0-20)
[2023-08-10 14:57] LABS: INR 2.1 (0.9-1.1); Partial Thromboplastin Ratio 1.5; Partial Thromboplastin Time 41 Seconds (21-31); Prothrombin Time 22.4 Seconds (9.0-12.0)
--- NOTE | 2023-08-10 16:01 | History & Physical Report ---
Date of Service August 10, 2023 Assessment & Plan (1) Pre-syncope: Plan: Presyncope,? Bradycardia Patient reports an episode of bradycardia into the 40s at home with presyncopal symptoms. Of note this was on his blood pressure cuff, and his pulse ox at the same time did not correlate and was reading in the 60s and may have been an erroneous reading versus erroneous counts due to PVCs. He did have some presyncopal symptoms that correlated with this however Pacemaker will require battery life change within 3 months. 95% paced rhythm, no reported arrhythmias on interrogation High sensitive troponin is normal EKG without acute ischemic change Patient follows with Dr. Kren. Patient only to hold his Coumadin for 3 days leading up to procedure, and does not show any evidence of device failure at time of admission requiring emergent replacement. He is scheduled for this on 08/21/22, if no abnormalities seen can keep this appointment. Will admit to medical telemetry and monitor overnight for abnormality/symptoms No focal deficits or strokelike symptoms (2) Paroxysmal atrial flutter: Plan: CAD, history of atrial fibrillation/atrial flutter Continue anticoagulation with warfarin INR therapeutic 2.1 admission, trended Continue statin, metoprolol. Patient is not on antiplatelet at baseline (3) History of prostate cancer: Plan: History of prostate cancer, history of LUTS S/p radiation Continue Flomax every 72 hours (4) Sick sinus syndrome: Plan Diet: HH Dispo: MedTele DVT PPX: ANticoagulated Code: DNR/DNI 'No heroics' History of Present Illness Primary Care Provider: DO Horace Frederick Josue is an 88-year-old male with past medical history of A-fib, sick sinus syndrome s/p pacemaker placement, CAD, hypertension who presents with an irregular heart rate and rate dropping into the 40s. He is overdue for pacemaker battery replacement. Patient felt presyncopal but did not have any syncope or falls. On ER evaluation atrially paced with intermittent PVCs, no acute ischemic changes. Pacemaker interrogation showed the battery change will need to be done within 3 months, 95% paced rhythm, occasional PVCs no other a rrhythmia. Did not reprot any episodes of bradycardia. Return home with outpatient follow-up as discussed with patient and daughter who is a nurse, daughter is not comfortable with return home without overnight monitoring on telemetry due to his presyncopal symptoms and cardiac history. Horace has no leukocytosis, no transaminitis, no troponin elevation, x-ray without acute findings. Patient with HR of 40s on BP cuff. Finger pulseox showed rate of 60s at about the same time. Noted pulse seemed a little irregular on palpation of his wrist. Normally HR is 60s and goes up to the 70s. No chest pain at any point. no shortness of breath at any point. No orthopnea. Just felt 'a little lightheaded and funny.' No nausea, no vomiting. No inducible chest pain or sx going up stairs, and uses and exercise bike 3 miles per day with no shortness of breath or limiting symptoms. Denies recent flu like symptoms. Took meds today. Prostate cancer 15 years ago, stable [facility]audencio does well with flomax and outpt PSA has been stable. No UTI sx. Medical History: Reviewed Medications: Reviewed Surgical History: Reviewed Family history: Reviewed Allergies: Reviewed Social History: Reviewed Code Status: Allergies Allergy/AdvReac Type Severity Reaction Status Date / Time omeprazole AdvReac Intermediate GI UPSET Verified 07/19/23 13:05 Home Medications Medication Instructions Recorded Confirmed Type calcium carbonate 600 mg-vitamin 1 tab PO BID 07/01/18 08/10/23 History D3 5 mcg (200 unit) capsule (Calcium 600 + D(3)) multivitamin 1 tab PO QAM 07/01/18 08/10/23 History cholecalciferol (vitamin D3) 50 2,000 unit PO HS 09/19/18 08/10/23 History mcg (2,000 unit) capsule nystatin-triamcinolone 100,000 1 applic topical BID PRN Skin 03/29/21 08/10/23 History unit/gram-0.1 % topical ointment Irritation metoprolol tartrate 25 mg tablet 25 mg PO BID #180 tabs 10/12/22 08/10/23 Rx tamsulosin 0.4 mg capsule 0.4 mg PO UD 06/14/23 08/10/23 History zinc 50 mg tablet 50 mg PO HS 06/14/23 08/10/23 History warfarin 1 mg tablet See Rx Instructions PO DAILY 07/05/23 08/10/23 History warfarin 3 mg tablet See Rx Instructions PO DAILY 07/05/23 08/10/23 History ipratropium bromide 21 mcg (0.03 2 spray intranasal BID #90 mL 07/19/23 08/10/23 Rx %) nasal spray atorvastatin 20 mg tablet 20 mg PO HS #90 tabs 07/20/23 08/10/23 Rx Past Med/Surg History Medical History Lesion of ear canal biopsy 06/2023- benign History of COVID-19 2022, resolved Prediabetes History of prostate cancer (2006) Paroxysmal atrial fibrillation Pacemaker (2012) follows with Dr Kern, [employer], last checked 04/05/2023 Coronary artery disease History of hemorrhoids Sick sinus syndrome Pancytopenia Prior Hematology Evaluation Dyslipidemia Carcinoma of prostate (10/03/12) Radiation Tx, followed by Urology Anticoagulant long-term use Warfarin BPH (benign prostatic hyperplasia) Hypertension Surgical History History of ear surgery rt canal lesion biopsy on 06/23/23-Dr. Deal History of radiation therapy History of PTCA 1992-myocardial infarction History of colonoscopy Atrial fibrillation status post cardioversion electrical cardioversion to sinus rhythm History of placement of stent in LAD coronary artery (10/03/12) History of angioplasty History of permanent cardiac pacemaker placement History of surgery on extremity repair of broken finger S/P left knee arthroscopy Family History Father Prostate cancer Heart disease Heart disease Brother Heart disease Prostate cancer Heart disease Myocardial infarction Other No family history of bleeding disorder No pertinent family history Denies family history of Ovarian cancer Diabetes Breast cancer Colorectal cancer Hypertension Stroke Social History Smoking Status: Never smoker Second Hand Exposure: No; Do You Dip or Chew Tobacco: No; Hx Alcohol Use: No Hx Substance Use: No Preferred Language: Russian Communication Ability: Effective Visual Impairment: Limited Hearing Ability: Use of Hearing Aid Basin Cleaner Required: No Beliefs That Will Affect Care: None marital status: Current Living Situation: Spouse Current Living Situation Comment: Lives with Regine current occupational status: retired How many Children do You have: 1 Feels Safe at Home: Yes Childhood Exposure to Second-Hand Smoke: No Diet: regular Diet Comment: regular caffeine: No during the past year weight has: remained stable Dental Care, Regularly: Yes Physical Activity Frequency: Daily Seatbelt Use: always Sunscreen Use: No (WEARS HAT) Do you think of yourself as: straight/heterosexual Assistive Devices: Glasses and Hearing Aid - Bilateral Physical Exam Physical Exam: General: A&Ox3. NAD. Cooperative. HEENT: Atraumatic, normocephalic. Pulm: CTAB A&P. -wheezes, -rales, -rhonchi. Symmetrical chest rise. No increased work of breathing. No respiratory distress. Cardiac: RRR, +sm. Radial pulses intact and symmetrical. Abdominal: Nontender, nondistended, soft. BS present. Ext: No LUIS ENRIQUE Results & Data Results & Data Vital Signs (Past 12 Hours) Vital Signs Temp Pulse Pulse Resp BP BP Pulse Ox 08/10/23 15:00 138/82 08/10/23 15:00 62 15 94 08/10/23 14:30 163/92 H 08/10/23 14:30 62 17 97 08/10/23 14:01 147/73 H 08/10/23 14:01 60 16 96 08/10/23 14:00 60 21 96 08/10/23 13:34 08/10/23 13:30 66 16 139/83 96 08/10/23 13:26 96 08/10/23 13:10 65 08/10/23 13:07 66 17 148/80 H 96 08/10/23 12:47 36.4 C L 63 16 156/70 H 96 O2 Del Method 08/10/23 15:00 08/10/23 15:00 08/10/23 14:30 08/10/23 14:30 08/10/23 14:01 08/10/23 14:01 08/10/23 14:00 08/10/23 13:34 Room Air 08/10/23 13:30 Room Air 08/10/23 13:26 Room Air 08/10/23 13:10 08/10/23 13:07 Room Air 08/10/23 12:47 Room Air PG Care Time/CCT Total # of Minutes Spent Total Time Spent with Patient: Total time spent is greater than 50% in coordination of care (as documented) at patient's floor/unit and/or counseling patient: Coding Level of Care Code 10355 INT INP/OBS CARE Diagnoses Pre-syncope R55 Paroxysmal atrial flutter I48.92 History of prostate cancer Z85.46 Sick sinus syndrome I49.5
[2023-08-10] MEDS ORDERED: ACETAMINOPHEN 325 MG TAB PO PRN (18:35)
[2023-08-10] MEDS: CHOLECALCIFEROL 25 MCG (1000 UNITS) TAB PO SCH (20:41)
[2023-08-10] MEDS: METOPROLOL TARTRATE 25 MG TAB PO SCH (20:42)
[2023-08-10] MEDS: ZINC SULFATE 220 MG CAPSULE PO SCH (20:42)
[2023-08-10] MEDS: CALCIUM 600MG + VIT D 400 IU TAB PO SCH (20:42)
[2023-08-10] MEDS: IPRATROPIUM BROMIDE NASAL SPRAY 0.06% 15ML NAE SCH (20:44)
[2023-08-10] MEDS: WARFARIN SOD 3 MG TAB PO STA (21:26)
[2023-08-10] MEDS: ATORVASTATIN 20 MG TAB PO SCH (22:03)
[2023-08-11 04:45] LABS: Basophils # (auto) 0.03 K/uL (0.00-0.20); Basophils % (auto) 0.5 %; Eosinophils # (auto) 0.12 K/uL (0.00-0.50); Eosinophils % (auto) 2.2 %; Hematocrit (blood only) 39.1 % (42.0-52.0); Hemoglobin 12.9 g/dl (14.0-18.0); Immature Granulocytes # (auto) 0.02 K/uL (0.01-0.20); Immature Granulocytes % (auto) 0.4 %; Lymphocytes % (auto) 25.2 %; Mean Corpuscular Hemoglobin 30.9 pg (25.0-34.0); Mean Corpuscular Volume 93.8 fL (80.0-100.0); Mean Platelet Volume 10.4 fL (9.4-12.4); Monocytes # (auto) 0.66 K/uL (0.11-0.59); Monocytes % (auto) 11.9 %; Neutrophils # (auto) 3.32 K/uL (1.40-6.50); Neutrophils % (auto) 59.8 %; Platelet Count 124 K/uL (130-400); RDW Coefficient of Variation 12.3 % (11.5-14.5); RDW Standard Deviation 42.7 fL (36.4-46.3); Red Blood Count 4.17 M/uL (4.70-6.10); White Blood Count 5.55 K/ul (4.8-10.8)
[2023-08-11 05:00] LABS: BUN Creatinine Ratio 21.7 (10-20); Calcium 9.4 mg/dl (8.6-10.3); Creatinine Clr Calc Pharmacy 48.2 ml/min; Est GFR (African American) 72.3 ml/min; Est GFR (Non-African American) 62.4 ml/min
[2023-08-11] MEDS: TAMSULOSIN HCL 0.4 MG CAP PO SCH (07:45)
[2023-08-11] MEDS ORDERED: WARFARIN SOD 1 MG TAB PO SCH (09:00)
--- NOTE | 2023-08-11 15:43 | Discharge Summary ---
Date of Service August 11, 2023 Admission HPI Per Admitting Provider Horace Salas is an 88-year-old male with past medical history of A-fib, sick sinus syndrome s/p pacemaker placement, CAD, hypertension who presents with an irregular heart rate and rate dropping into the 40s. He is overdue for pacemaker battery replacement. Patient felt presyncopal but did not have any syncope or falls. On ER evaluation atrially paced with intermittent PVCs, no acute ischemic changes. Pacemaker interrogation showed the battery change will need to be done within 3 months, 95% paced rhythm, occasional PVCs no other arrhythmia. Did not reprot any episodes of bradycardia. Return home with outp atient follow-up as discussed with patient and daughter who is a nurse, daughter is not comfortable with return home without overnight monitoring on telemetry due to his presyncopal symptoms and cardiac history. Horace has no leukocytosis, no transaminitis, no troponin elevation, x-ray without acute findings. Patient with HR of 40s on BP cuff. Finger pulseox showed rate of 60s at about the same time. Noted pulse seemed a little irregular on palpation of his wrist. Normally HR is 60s and goes up to the 70s. No chest pain at any point. no shortness of breath at any point. No orthopnea. Just felt 'a little lightheaded and funny.' No nausea, no vomiting. No inducible chest pain or sx going up stairs, and uses and exercise bike 3 miles per day with no shortness of breath or limiting symptoms. Denies recent flu like symptoms. Took meds today. Prostate cancer 15 years ago, stable [facility] does well with flomax and outpt PSA has been stable. No UTI sx. 08/10 patient was admitted for observation, he is paced hr above 60, blood pressure is stable, no symptoms , stable for discharge , follow up with [employer] as outpatient Medical History: Reviewed Medications: Reviewed Surgical History: Reviewed Family history: Reviewed Allergies: Reviewed Social History: Reviewed Code Status: Principal Diagnosis presyncope Discharge Data Allergies Allergy/AdvReac Type Severity Reaction Status Date / Time omeprazole AdvReac Intermediate GI UPSET Verified 07/19/23 13:05 Consultations 08/10/23 16:14 ED Decision to Admit Stat 08/11/23 09:39 Consult Cardiology Routine Hospital Course (1) Pre-syncope: Presyncope,? Bradycardia Patient reports an episode of bradycardia into the 40s at home with presyncopal symptoms. Of note this was on his blood pressure cuff, and his pulse ox at the same time did not correlate and was reading in the 60s and may have been an erroneous reading versus erroneous counts due to PVCs. He did have some presyncopal symptoms that correlated with this however Pacemaker will require battery life change within 3 months. 95% paced rhythm, no reported arrhythmias on interrogation High sensitive troponin is normal EKG without acute ischemic change Patient follows with Dr. Kern. Patient only to hold his Coumadin for 3 days leading up to procedure, and does not show any evidence of device failure at time of admission requiring emergent replacement. He is scheduled for this on 08/21/22, if no abnormalities seen can keep this appointment. Will admit to medical telemetry and monitor overnight for abnormality/symptoms No focal deficits or strokelike symptoms (2) Paroxysmal atrial flutter: CAD, history of atrial fibrillation/atrial flutter Continue anticoagulation with warfarin INR therapeutic 2.1 admission, trended Continue statin, metoprolol. Patient is not on antiplatelet at baseline (3) History of prostate cancer: History of prostate cancer, history of LUTS S/p radiation Continue Flomax every 72 hours (4) Sick sinus syndrome: Plan Diet: HH Dispo: [facility] DVT PPX: ANticoagulated Code: DNR/DNI 'No heroics' Total Time Total Time Spent Total Time Spent (In Minutes): 35 minutes Discharge Plan Discharge Items Patient Disposition: Home - Self-Care Reason For Visit: PRESYNCOPE, BRADYCARDIA Discharge Diagnosis: presyncope Activity: Resume your previous activity Non-emergency contact: [employer] Call non-emergency contact if: your symptoms worsen Follow-up/Referrals: Anette Collins DO [Primary Care Provider] - Diet: Heart Healthy Addtl Attending Provider Instructions: follow up with pcp Pending Studies at Discharge: No Stand-Alone Forms: My [employer], Smoking Cessation Medications and DC Order Prescriptions: Continued warfarin 1 mg tablet See Rx Instructions PO DAILY Rx Instructions: 1/2 tab as part of 3 1/2 mg dose on Monday, Monday (3 mg all other days) orally daily; warfarin 3 mg tablet See Rx Instructions PO DAILY Rx Instructions: 1 tab daily as part of 3 1/2 mg dose on Monday, Monday (3 mg all other days) orally daily; ipratropium bromide 21 mcg (0.03 %) spray,non-aerosol 2 spray intranasal BID Qty: 90 3RF Rx Instructions: administer into each nostril atorvastatin 20 mg tablet 20 mg PO HS Qty: 90 3RF nystatin-triamcinolone 100,000-0.1 unit/gram-% ointment 1 applic TOP BID PRN (Reason: Skin Irritation) Rx Instructions: Dispense 3 tubes cholecalciferol (vitamin D3) 2,000 unit capsule 2,000 unit PO HS multivitamin Tablet 1 tab PO QAM Calcium 600 + D(3) 600 mg calcium- 200 unit Capsule 1 tab PO BID zinc 50 mg Tablet 50 mg PO HS tamsulosin 0.4 mg capsule 0.4 mg PO UD Patient Comments: one tablet every three days Changed metoprolol tartrate 25 mg tablet 12.5 mg PO BID Qty: 180 3RF Admission Data Admit Date/Time: 08/10/23 16:09 Attending Provider: Sarah Johnson Admit Provider: Dta Akbar Primary Care Provider: Anette Collins Other Providers: Dat Akbar; Ganesh Diaz; Gabriel North; Clifford Pope; Evans Sommer; Jono Mehta; Levi Orourke Jr; Kar Brooke; Bisi Mayo; Seema Faustin; Rafy Millard; Rafy Jiang; Horace Fuentes; Malina Raymundo; Gus Mernio; Amarilis Osman; Francois Seals.; Vinicius Santana; Vasquez Ervin; Rolan Emery Coding Level of Care Code 91096 INP/OBS DISCH >30 MIN Diagnoses Pre-syncope R55 Paroxysmal atrial flutter I48.92 History of prostate cancer Z85.46 Sick sinus syndrome I49.5
[2023-08-11] MEDS: WARFARIN SOD 3 MG TAB PO SCH (16:50)
[2023-08-11] MEDS: WARFARIN SOD 0.5 MG TAB PO SCH (16:50)
--- NOTE | 2023-08-12 00:04 | Electrocardiogram Report ---
Test Reason : Blood Pressure : / mmHG Vent. Rate : 068 BPM Atrial Rate : 068 BPM P-R Int : 238 ms QRS Dur : 158 ms QT Int : 434 ms P-R-T Axes : 000 -76 068 degrees QTc Int : 461 ms Atrial-paced rhythm with prolonged AV conduction with frequent Premature ventricular complexes Right bundle branch block Left anterior fascicular block Bifascicular block Abnormal ECG When compared with ECG of 09-JUN-2023 12:45, No significant change Confirmed by Kar Brooke ([id number]) on 08/12/2023 12:03:44 AM Referred By: Confirmed By:Kar Brooke
--- NOTE | 2023-08-12 00:09 | Electrocardiogram Report ---
Test Reason : Blood Pressure : / mmHG Vent. Rate : 061 BPM Atrial Rate : 061 BPM P-R Int : 252 ms QRS Dur : 154 ms QT Int : 456 ms P-R-T Axes : 000 -83 051 degrees QTc Int : 459 ms Atrial-paced rhythm with prolonged AV conduction Left axis deviation Right bundle branch block Abnormal ECG When compared with ECG of 10-AUG-2023 13:14, Premature ventricular complexes are no longer Present Confirmed by Kar Brooke ([id number]) on 08/12/2023 12:09:37 AM Referred By: REFERRED SELF Confirmed By:Kar Brooke
== END 2023-08-11 18:00 | disposition home or self-care (01) ==
LOC: ED 12:46 → 2W 12:46 → SUATTDRO 16:09 → 2W 18:59